=== PATIENT | male | born 1950 | race Caucasian/White ===

== ENCOUNTER 2017-04-28 18:00 | Emergency (ER) | payer OTHER, MEDICARE ==
[2017-04-28 18:12] VITALS: BP 147/68; PULSE 67; TEMP 98.6; BMI 35.4
--- NOTE | 2017-04-28 18:14 | PDOC ---
Rapid Medical Evaluation Chief Complaint: Revisit, Lab Variance Time Seen by Provider: 04/28/17 18:13 Medical Evaluation: Allergies Allergy/AdvReac Type Severity Reaction Status Date / Time No Known Allergies Allergy Verified 04/28/17 18:09 Vital Signs Temp Pulse Resp BP Pulse Ox 98.6 F 67 19 147/68 96 04/28/17 18:10 04/28/17 18:10 04/28/17 18:10 04/28/17 18:10 04/28/17 18:10 04/28/17 18:13 66yo male patient presents to ED c/o elevated potassium. Patient reports having blood drawn by Dr. Alfonso on Monday, just received results today and was told to go to ER. Patient has no other complaints at this time.
[2017-04-28] MEDS ORDERED: SODIUM CHLORIDE 0.9% 1000 ML INFUS.BAG IV ONE (18:22)
[2017-04-28 19:07] LABS: BASO % 0.5 % (0-2.0); EOS % 3.2 % (0-4.5); HEMATOCRIT 38.9 % (35.4-49); HEMOGLOBIN 12.7 GM/dL (11.7-16.9); LYMPH % 29.2 % (8-40); MCH 29.2 pg (25.7-33.7); MCHC 32.8 g/dl (32.0-35.9); MEAN PLT VOLUME 10.7 fl (7.5-11.1); MONO % 14.2 % (3.8-10.2); NEUT % 52.9 % (42.8-82.8); PLATELET COUNT 227 K/MM3 (134-434); RBC 4.37 M/mm3 (4.00-5.60); RDW 13.4 % (11.9-15.9); WHITE BLOOD COUNT 6.1 K/mm3 (4.0-10.0)
--- NOTE | 2017-04-28 19:13 | PDOC ---
History of Present Illness - General History Source: Patient, Old Records Exam Limitations: No Limitations - History of Present Illness Initial Comments: 04/28/17 19:13 The patient is a 65-year-old male, with a significant past medical history of diabetes, gastritis, kidney stones, chronic kidney disease, and hypertension, who sent to the ED by Dr. Alfonso for abnormal labs. The patient's blood work revealed worsening kidney function. On exam, the patient states that he feels increasingly more fatigued when ambulating. He has also noted lower extremity swelling. PCP: Dr. Alfonso <Hawa Donis - Last Filed: 04/28/17 19:13> <Henry Cuadra - Last Filed: 04/28/17 20:40> - General Chief Complaint: Revisit, Lab Variance Stated Complaint: PCP SENT Time Seen by Provider: 04/28/17 18:13 Past History <Hawa Donis - Last Filed: 04/28/17 19:13> - Past Medical History Anemia: Yes Asthma: No Cancer: No Cardiac Disorders: Yes CVA: No COPD: No Dementia: No Diabetes: Yes GI Disorders: Yes (gastritis) Disorders: No HTN: Yes Hypercholesterolemia: No Kidney Stones: Yes Liver Disease: No Seizures: No Thyroid Disease: No - Surgical History Abdominal Surgery: No Appendectomy: No Cardiac Surgery: No Cholecystectomy: Yes Lung Surgery: No Neurologic Surgery: No Orthopedic Surgery: No - Suicide/Smoking/Psychosocial Hx Smoking Status: No Smoking History: Never smoked Have you smoked in the past 12 months: No Number of Cigarettes Smoked Daily: 0 Hx Alcohol Use: No Drug/Substance Use Hx: No Substance Use Type: None Hx Substance Use Treatment: No <Henry Cuadra - Last Filed: 04/28/17 20:40> - Past Medical History Allergies/Adverse Reactions: Allergies Allergy/AdvReac Type Severity Reaction Status Date / Time No Known Allergies Allergy Verified 04/28/17 18:09 Home Medications: Ambulatory Orders Aspirin 81 mg PO DAILY 08/25/13 Carvedilol [Coreg] 25 mg PO BID 08/25/13 Furosemide [Lasix -] 40 mg PO DAILY 08/25/13 Hydralazine HCl 25 mg PO DAILY 08/25/13 Insulin Glargine,Hum.rec.anlog [Lantus Solostar PEN -] 60 units SQ HS 08/25/13 Insulin Lispro [Humalog] 10 unit SQ HS 08/25/13 Cholecalciferol (Vitamin D3) [Vitamin D3 -] 5,000 unit PO DAILY 04/28/17 Review of Systems - Review of Systems Able to Perform ROS?: Yes Comments:: 04/28/17 19:18 A complete review of 10 out of 10 review of systems is taken and is negative apart from what is previously mentioned below and in the HPI. <Hawa Donis - Last Filed: 04/28/17 19:13> *Physical Exam - Vital Signs Last Vital Signs Temp Pulse Resp BP Pulse Ox 98.6 F 67 19 147/68 96 04/28/17 18:10 04/28/17 18:10 04/28/17 18:10 04/28/17 18:10 04/28/17 18:10 - Physical Exam Comments: 04/28/17 19:19 Vitals: Triage Vital signs reviewed General Appearance: no acute distress, well nourished well developed, Neck: Supple;No Nuchal rigidity Chest Wall: Nontender Cardiac: Regular rate and rhythm, no murmurs, no rubs, no gallops, Lungs: Clear to auscultation bilateral, good air movement bilaterally, Abdomen: Soft, nondistended, normal bowel sounds, nontender to palpation Rectal: Exam deferred Extremities: (+)3+ pitting edema in the lower extremities bilaterally. Full range of motion to all extremities, no cyanosis, clubbing. Skin: Warm and dry, no rashes or lesions, no petechiae Neuro: AOX3; Cranial Nerves 2-12 grossly intact, Strength intact to all extremities, Sensation intact to all extremities Psych: normal mood, normal affect <Hawa Donis - Last Filed: 04/28/17 19:13> - Vital Signs Last Vital Signs Temp Pulse Resp BP Pulse Ox 98.6 F 67 19 147/68 96 04/28/17 18:10 04/28/17 18:10 04/28/17 18:10 04/28/17 18:10 04/28/17 18:10 <Henry Cuadra - Last Filed: 04/28/17 20:40> ED Treatment Course - LABORATORY CBC & Chemistry Diagram: 04/28/17 18:40 04/28/17 18:40 <Hawa Donis - Last Filed: 04/28/17 19:13> - LABORATORY CBC & Chemistry Diagram: 04/28/17 18:40 04/28/17 18:40 - RADIOLOGY Radiology Studies Ordered: Category Date Time Status KIDNEY / RENAL US [US] Stat Ultrasound 04/28/17 18:22 Ordered PELVIC / BLADDER US [US] Stat Ultrasound 04/28/17 18:22 Ordered <Henry Cuadra - Last Filed: 04/28/17 20:40> Medical Decision Making - Medical Decision Making 04/28/17 20:39 Patient sent to the emergency department for elevated creatinine. EKG with no evidence of hyperkalemia. Labs sent 2 L normal saline ordered. Ultrasound renal bladder ordered Dr. Alvarez to repeat labs follow-up ultrasound call with results <Henry Cuadra - Last Filed: 04/28/17 20:40> *DC/Admit/Observation/Transfer - Attestations Scribe Attestion: 04/28/17 19:22 Documentation prepared by Hawa Donis, acting as program medical director for Henry Cuadra MD. <Hawa Donis - Last Filed: 04/28/17 19:13> <Henry Cuadra - Last Filed: 04/28/17 20:40> Diagnosis at time of Disposition: Renal insufficiency - Referrals Referrals: Deepika Alfonso MD [Primary Care Provider] - - Patient Instructions - Post Discharge Activity
[2017-04-28 19:44] LABS: CALCIUM 8.5 mg/dL (8.5-10.1); CHLORIDE 101 mmol/L (98-107); POTASSIUM 4.7 mmol/L (3.5-5.1); SODIUM 135 mmol/L (136-145)
[2017-04-28 19:50] LABS: ALBUMIN 3.6 g/dl (3.4-5.0); ALK PHOS 62 U/L (45-117); ANION GAP 7 (8-16); BILIRUBIN,TOTAL 0.4 mg/dL (0.2-1.0); BLOOD UREA NITROGEN 54 mg/dL (7-18); CO2 27 mmol/L (21-32); CREATININE 2.9 mg/dL (0.7-1.3); GLUCOSE,RANDOM 160 mg/dL (74-106); SGOT/AST 11 U/L (15-37); SGPT/ALT 20 U/L (12-78); TOT PROT 7.7 g/dl (6.4-8.2)
[2017-04-28 20:11] LABS: N-TERMINAL BNP 567.32 pg/ml (5-125)
--- NOTE | 2017-04-28 23:04 | PDOC ---
*Physical Exam - Vital Signs Last Vital Signs Temp Pulse Resp BP Pulse Ox 98.6 F 67 19 147/68 96 04/28/17 18:10 04/28/17 18:10 04/28/17 18:10 04/28/17 18:10 04/28/17 18:10 ED Treatment Course - LABORATORY CBC & Chemistry Diagram: 04/28/17 18:40 04/28/17 23:45 - ADDITIONAL ORDERS Additional order review: Laboratory Results 04/28/17 04/28/17 18:40 18:40 Sodium 135 L Potassium 4.7 Chloride 101 Carbon Dioxide 27 Anion Gap 7 L BUN 54 H Creatinine 2.9 H D Creat Clearance w eGFR 21.75 Random Glucose 160 H Calcium 8.5 Total Bilirubin 0.4 AST 11 L D ALT 20 Alkaline Phosphatase 62 Troponin I < 0.02 B-Natriuretic Peptide 567.32 H Total Protein 7.7 Albumin 3.6 04/28/17 18:40 RBC 4.37 MCV 89.0 MCHC 32.8 RDW 13.4 MPV 10.7 Neutrophils % 52.9 Lymphocytes % 29.2 Monocytes % 14.2 H Eosinophils % 3.2 Basophils % 0.5 - RADIOLOGY Radiology Studies Ordered: Category Date Time Status CHEST PA & LAT [RAD] Stat Radiology 04/28/17 22:01 Ordered - Medications Given in the ED: ED Medications Discontinued Medications Generic Name Dose Route Start Last Admin Trade Name Freq PRN Reason Stop Dose Admin Sodium Chloride 2,000 ml 04/28/17 18:22 04/28/17 19:19 Normal Saline - IV 04/28/17 18:23 2,000 ml ONCE ONE Administration Medical Decision Making - Medical Decision Making 04/28/17 23:03 I received signout on patinet. He has elevated BNP, but also elevated BUN/Cr and he was hydrated in the ER to bring down his BUN/Cr. 04/28/17 23:16 Pt received 1L and he is feeling better. CXR looks like the old one from 2013. Slightly increased lung markings, but no infiltrate and no effusions. 04/29/17 01:28 Labs improving. Pt wants to go. He feels better. Ready to go. *DC/Admit/Observation/Transfer Diagnosis at time of Disposition: Renal insufficiency - Discharge Dispostion Disposition: HOME Condition at time of disposition: Stable Admit: No - Referrals Referrals: Nia Monae MD [Staff Physician] - - Patient Instructions Printed Discharge Instructions: Renal Ultrasound - Post Discharge Activity
[2017-04-28 23:45] LABS: URINE APPEARANCE CLEAR; URINE BILIRUBIN NEGATIVE (NEGATIVE); URINE BLOOD NEGATIVE (NEGATIVE); URINE COLOR LTYELLOW; URINE GLUCOSE (UA) 1+ (NEGATIVE); URINE KETONE NEGATIVE (NEGATIVE); URINE LEUK ESTERASE NEGATIVE (NEGATIVE); URINE NITRITE NEGATIVE (NEGATIVE); URINE UROBILINOGEN NEGATIVE mg/dL (0.2-1.0)
[2017-04-28 23:50] LABS: URINE PROTEIN 2+ (NEGATIVE)
[2017-04-29 01:21] LABS: ANION GAP 6 (8-16); BLOOD UREA NITROGEN 51 mg/dL (7-18); CHLORIDE 105 mmol/L (98-107); CO2 26 mmol/L (21-32); CREATININE 2.6 mg/dL (0.7-1.3); GLUCOSE,RANDOM 120 mg/dL (74-106); POTASSIUM 4.1 mmol/L (3.5-5.1); SODIUM 137 mmol/L (136-145)
[2017-04-29 01:23] LABS: N-TERMINAL BNP 448.15 pg/ml (5-125)
--- NOTE | 2017-04-29 16:52 | EKG ---
Test Reason : Blood Pressure : / mmHG Vent. Rate : 064 BPM Atrial Rate : 064 BPM P-R Int : 168 ms QRS Dur : 104 ms QT Int : 420 ms P-R-T Axes : 056 045 061 degrees QTc Int : 433 ms NORMAL SINUS RHYTHM NORMAL ECG WHEN COMPARED WITH ECG OF 25-AUG-2013 11:28, NO SIGNIFICANT CHANGE WAS FOUND Confirmed by GUI FROST MD ([id number]) on 04/29/2017 4:51:48 PM Referred By: Confirmed By:GUI FROST MD
== END 2017-04-29 02:04 | disposition home or self-care (01) ==
LOC: JER 18:00
DX: N28.9 Disorder of kidney and ureter, unspecified (principal); I10 Essential (primary) hypertension; E11.9 Type 2 diabetes mellitus without complications; Z79.84 Long term (current) use of oral hypoglycemic drugs; Z87.442 Personal history of urinary calculi
CPT/HCPCS: 36415; 71046-TC; 76775-TC; 76856-TC; 80048; 80053; 81003; 81015; 83880; 84484; 85025; 87086; 93005; 93010; 99283-25

== ENCOUNTER 2019-05-16 11:22 | Day surgery (SDC) | payer OTHER, MEDICARE ==
[2019-05-16] MEDS ORDERED: DEXTROSE 50%-WATER 25 GM/50 ML DISP.SYRIN ONE (11:46)
[2019-05-16 12:51] VITALS: BMI 36.9
[2019-05-16] MEDS ORDERED: PROPOFOL 20 ML ONE ×2 (13:41)
[2019-05-16 14:46] VITALS: PULSE 57
[2019-05-16 15:15] VITALS: BP 133/62; TEMP 97.9
--- NOTE | 2019-05-20 15:08 | PATH ---
Surgical Pathology Report Patient Name: ROXI MCNAMARA [facility]. Rec. #: [id number] /Age/Gender: 1950 (Age: 68) / M Account: [id number] Location: [facility] Taken: 05/16/2019 Received: 05/16/2019 Reported: 05/20/2019 Physicians: Abran Sims M.D. Specimen(s) Received A: POLYP RIGHT COLON B: POLYP RECTUM Clinical History History of polyps Postoperative diagnosis: Colon polyps Final Diagnosis A. COLON, RIGHT, POLYP, BIOPSY: HYPERPLASTIC POLYP. B.RECTUM, POLYP, BIOPSY: TUBULAR ADENOMA. Electronically Signed Niecy Walker M.D. Gross Description A. Received in formalin, labeled "biopsy polyp right colon" is a vanessa, irregular portion of soft tissue measuring 0.4 cm. in greatest dimension. The specimen is submitted in toto in one cassette. B. Received in formalin, labeled "biopsy polyp rectum" is a vanessa, irregular portion of soft tissue measuring 0.5 cm. in greatest dimension. The specimen is submitted in toto in one cassette. /05/17/2019 saudi/05/17/2019
== END 2019-05-16 15:20 | disposition home or self-care (01) ==
LOC: FASU-ENDO 11:22
PROVIDERS: ATTEND Internal Medicine Gastroenterology
PROC: 0DBK8ZX Excision of Ascending Colon, Via Natural or Artificial Opening Endoscopic, Diagnostic (ICD-10-PCS; 2019-05-16)
PROC: 0DBP8ZX Excision of Rectum, Via Natural or Artificial Opening Endoscopic, Diagnostic (ICD-10-PCS; principal; 2019-05-16 13:59)
DX: Z86.010 Personal history of colon polyps (principal); D12.2 Benign neoplasm of ascending colon; D12.8 Benign neoplasm of rectum
CPT/HCPCS: 82962; 88305-TC

== ENCOUNTER 2020-01-29 04:30 | Day surgery (SDC) | payer OTHER, MEDICARE ==
[2020-01-28 17:15] VITALS: BMI 37.6
--- OUTSIDE RECORDS SUMMARY | 2020-01-29 04:35 | XMS ---
:1950 Author Organization [facility] Care Team Providers Name Role Phone Tristan Jade MD Unavailable Unavailable Reda, F MD Unavailable Unavailable Reda, F MD Unavailable Unavailable Reda, F MD Unavailable Unavailable Reda, F MD Unavailable Unavailable Reda, F MD Unavailable Unavailable Reda, F MD Unavailable Unavailable Reda, F MD Unavailable Unavailable Reda, F MD Unavailable Unavailable Reda, F MD Unavailable Unavailable Reda, F MD Unavailable Unavailable Re-disclosure Warning The records that you are about to access may contain information from federally- assisted alcohol or drug abuse programs. If such information is present, then the following federally mandated warning applies: This information has been disclosed to you from records protected by federal confidentiality rules (42 CFR part 2). The federal rules prohibit you from making any further disclosure of this information unless further disclosure is expressly permitted by the written consent of the person to whom it pertains or as otherwise permitted by 42 CFR part 2. A general authorization for the release of medical or other information is NOT sufficient for this purpose. The Federal rules restrict any use of the information to criminally investigate or prosecute any alcohol or drug abuse patient.The records that you are about to access may contain highly sensitive health information, the redisclosure of which is protected by Article 27-F of the [place] State Public Health law. If you continue you may haveaccess to information: Regarding HIV / AIDS; Provided by facilities licensed or operated by the [facility] Office of Mental Health; or Provided by the [facility] Office for People With Developmental Disabilities. If such information is present, then the following [facility] mandated warning applies: This information has been disclosed to you from confidential records which are protected by state law. State law prohibits you from making any further disclosure of this information without the specific written consent of the person to whom it pertains, or as otherwise permitted by law. Any unauthorized further disclosure in violation of state law may result in a fine or prison sentence or both. A general authorization for the release of medical or other information is NOT sufficient authorization for further disclosure. Encounters Encounter Providers Location Date Indications Data Source(s ) Attender: Tristan 01/17/2020 (MEDGE N) Leonidas Jade MD 12:00:00 AM [place] [facility] Office Attender: Tristan Jade MD 01/17/2020 12:00:00 AM EDT (MEDGEN) [facility] Office Attender: Tristan Jade MD 01/17/2020 12:00:00 AM EDT (MEDGEN) [facility] Office Attender: Tristan Jade MD 01/17/2020 12:00:00 AM EDT (MEDGEN) [facility] Office Attender: Tristan Jade MD 11/28/2019 12:00:00 AM EDT (MEDGEN) [facility] Office Attender: Tristan Jade MD 11/28/2019 12:00:00 AM EDT (MEDGEN) [facility] Office Attender: Tristan Jade MD 11/28/2019 12:00:00 AM EDT (MEDGEN) [facility] Office Attender: Tristan Jade MD 11/28/2019 12:00:00 AM EDT (MEDGEN) [facility] Office Attender: Tristan Jade MD 11/28/2019 12:00:00 AM EDT (MEDGEN) [facility] Office Attender: Tristan Jade MD 11/28/2019 12:00:00 AM EDT (MEDGEN) [facility] Office Medications Medication Brand Start Product Dose Route Administrative Pharmacy [facility] Indications Reaction Description Data Name Date Form Instructions Instructions Source(s) Amlodipine AMLODI 01/16/ TABLET 30 complet AMLOD IPINE (MEDGEN) 2.5 MG Oral PINE 2020 ed BESYLATE [place] Tablet BESYLA 12:00: [place] e AMLODIPINE TE:308 00 AM r BESYLATE:30 136 EDT [facility] 8136 PLL[facility] Calcitriol CALCIT 10/30/ CAPSULE 90 complet CALC ITRIOL (MEDGEN) 0.0005 MG RIOL:3 2018 ed [facility] Oral [id number] 12:00: [place] Capsule 00 AM r CALCITRIOL: EDT [facility] [id number] [facility] Calcitriol CALCIT 10/30/ CAPSULE 90 complet CALC ITRIOL (MEDGEN) 0.0005 MG RIOL:3 2018 ed [facility] Oral [id number] 12:00: [place] Caps[place] 00 AM r CALCITRIOL: EDT [facility] 138542 [facility] Insurance Providers Payer name Policy type Policy ID Covered Covered green party's Policy P en / Coverage green party ID relationship to [employer] Inf ormation type wang MEDICARE [id number] SP [id number] [facility] [id number] 1 [id number] [facility] PART B [id number] (EMDEON) [facility] AETNA INC SP AETNA IN C CARE OPTIONS MEDICARE AETNA INC SP AETNA INC MEDICARE [id number] SP [id number] [facility] [id number] SP [id number] CARE OPTIONS MEDICARE [id number] SP [id number] A Problems, Conditions, and Diagnoses Code Display Name Description Problem Type Effective Dates Data Source(s) N18.9 Chronic kidney CHRONIC KIDNEY Problem 11/28/2019 (MEDGE N) [facility] disease, DISEASE, 12:00:00 AM EDT [facility] er unspecified [facility] N18.9 Chronic kidney CHRONIC KIDNEY Problem 11/28/2019 (MEDGE N) [facility] disease, DISEASE, 12:00:00 AM EDT [facility] er unspecified [facility] Surgeries/Procedures Procedure Description Date Indications Data Source(s) OFFICE OUTPATIENT VISIT 01/17/2020 (MED GEN) [facility] 25 MINUTES 12:00:00 AM [facility] COLLECTION VENOUS BLOOD 01/17/2020 (MED GEN) [facility] VENIPUNCTURE 12:00:00 AM [facility] OFFICE OUTPATIENT VISIT 11/28/2019 (MED GEN) [facility] 25 MINUTES 12:00:00 AM [facility] BLO[facility] 11/28/2019 (MED GEN) [facility] VENIP[facility]CTURE 12:00:00 AM [facility] OFF[facility] OUTPATIENT VISIT 11/28/2019 (MED GEN) [facility] 25 MINUTES 12:00:00 AM [facility] COLLECTION VENOUS BLOOD 11/28/2019 (MED GEN) [facility] VENIPUNCTURE 12:00:00 AM [facility] OFF[facility] OUTPATIENT VISIT 11/28/2019 (MED GEN) [facility] 25 MINUTES 12:00:00 AM [facility] OFFICE OUTPATIENT VISIT 05/22/2019 (MED GEN) [place] 15 MINUTES 12:00:00 AM [facility] OFF[facility] OUTPATIENT VISIT 05/22/2019 (MED GEN) [place] 15 MINUTES 12:00:00 AM [facility] OFFICE OUTPATIENT VISIT 05/22/2019 (MED GEN) [place] 15 MINUTES 12:00:00 AM [facility] OFF[facility] OUTPATIENT VISIT 05/02/2019 (MED GEN) [facility] 15 MINUTES 12:00:00 AM [facility] COLLECTION VENOUS BLOOD 05/02/2019 (MED GEN) [facility] VENIPUNCTURE 12:00:00 AM [facility] OFFICE OUTPATIENT VISIT 05/02/2019 (MED GEN) [place] 15 MINUTES 12:00:00 AM [facility] COLLECTION VENOUS BLOOD 05/02/2019 (MED GEN) [facility] VENIPUNCTURE 12:00:00 AM [facility]PATIENT VISIT 05/02/2019 (MED GEN) [facility] 15 MINUTES 12:00:00 AM [facility] OFFICE OUTPATIENT VISIT 03/25/2019 (MED GEN) [facility] 15 MINUTES 12:00:00 AM [facility]LE[facility] VENOUS BLOOD 03/25/2019 (MED GEN) [place] VENIPUNCTURE 12:00:00 AM [facility] OFFICE OUTPATIENT VISIT 03/25/2019 (MED GEN) [facility] 15 MINUTES 12:00:00 AM [facility] COLLECTION VENOUS BLOOD 03/25/2019 (MED GEN) [place] VENIPUNCTURE 12:00:00 AM [facility] OFFICE OUTPATIENT VISIT 03/25/2019 (MED GEN) [facility] 15 MINUTES 12:00:00 AM EST [place] [facility] OFF[facility] OUTPATIENT VISIT 02/13/2019 (MED GEN) [place] 15 MINUTES 12:00:00 AM EDT [place] [facility] COLLECTION VENOUS BLOOD 02/13/2019 (MED GEN) [place] VENIPUNCTURE 12:00:00 AM EDT [place] [facility] OFF[facility] OUTPATIENT VISIT 02/13/2019 (MED GEN) [facility] 15 MINUTES 12:00:00 AM EDT [place] [facility] COLLECTION VENOUS BLOOD 02/13/2019 (MED GEN) [place] VENIPUNCTURE 12:00:00 AM EDT [place] [facility] OFFICE OUTPATIENT VISIT 02/13/2019 (MED GEN) [place] 15 MINUTES 12:00:00 AM EDT [place] [facility] OFFICE OUTPATIENT VISIT 12/21/2018 (MED GEN) [facility] 15 MINUTES 12:00:00 AM EDT [place] [facility] COLLECTION VENOUS BLOOD 12/21/2018 (MED GEN) [place] VENIPUNCTURE 12:00:00 AM EDT [place] [facility] OFF[facility] OUTPATIENT VISIT 12/21/2018 (MED GEN) [place] 15 MINUTES 12:00:00 AM EDT [place] [facility] 12/21/2018 (MED GEN) [place] VENIPUNCTURE 12:00:00 AM EDT [place] [facility] Results ID Date Data Source [id number] 01/24/2020 10:50:00 AM EDT [facility] Name Value Range Interpretation Description Data Sup porting Code Source(s) Document(s ) SARS [facility] coronavirus 2 RNA This lab was ordered by [facility] and reported by [facility]. ID Date Data Source [id number] 01/13/2020 12:00:00 AM EDT [facility] Name Value Range Interpretation Code Description Data Angela rce(s) Supporting Document(s ) SARS-COV-2 [facility]P Diagnostics QL KEN+PROBE This lab was ordered by [facility] and reported by [facility]. ID Date Data Source [id number] 11/28/2019 12:00:00 AM EDT (MEDGEN) Norbert lynn [place] [facility] Name Value Range Interpretation Description Data Source(s ) Supporting Code Document(s ) Structure of 6.6 Normal (applies (MEDGEN) plantar Thousand to non-numeric [place] digital artery /uL results) [place] (body [facility]ph[facility] structure) [facility] RED BLOOD CELL 2.99 Below low normal (MEDGEN) COUNT Million/ [facility] uL [place] [facility] Hemoglobin 8.9 g/dL Below low normal (MEDGEN) [Mass/volume] [place] in Mixed [place] venous blood [facility] by [facility] Hematocrit 26.6 % Below low normal (MEDGEN) [Pure volume [place] fraction] of [place] Blood [facility] Automated [facility] count MCV 89.0 fL Normal (applies (MEDGEN) to non-numeric [facility] results) [place] [facility] MCHC 33.5 Normal (applies (MEDGEN) g/dL to non-numeric [place] results) [place] [facility] MCH 29.8 pg Normal (applies (MEDGEN) to non-numeric [place] results) [place] [facility] RDW 12.3 % Normal (applies (MEDGEN) to non-numeric [facility] results) [place] [facility] PLATELET COUNT 212 Normal (applies (MEDGEN) Thousand to non-numeric [facility] /uL results) [place] [facility] ABSOLUTE 4132 Normal (applies (MEDGEN) NEUTROPHILS cells/uL to non-numeric [facility] results) [place] [facility] MPV 12.1 fL Normal (applies (MEDGEN) to non-numeric [place] results) [place] [facility] ABSOLUTE 1465 Normal (applies (MEDGEN) LYMPHOCYTES cells/uL to non-numeric [facility] results) [place] [facility] ABSOLUTE 785 Normal (applies (MEDGEN) MONOCYTES cells/uL to non-numeric [facility] results) [place] [facility] ABSOLUTE 198 Normal (applies (MEDGEN) EOSINOPHILS cells/uL to non-numeric [facility] results) [place] [facility] ABSOLUTE 20 Normal (applies (MEDGEN) BASOPHILS cells/uL to non-numeric [facility] results) [place] [facility] Neutrophils 62.6 % Normal (applies (MEDGEN) [#] in Body to non-numeric [place] fluid by results) [place] Manual count [facility] Lymphocytes 22.2 % Normal (applies (MEDGEN) [#] in Body to non-numeric [place] fluid by results) [place] Manual count [facility] Monocytes 11.9 % Normal (applies (MEDGEN) [#/volume] in to non-numeric [facility] Cord blood results) [place] [facility] Eosinophils 3.0 % Normal (applies (MEDGEN) [#] in Body to non-numeric [place] fluid by results) [place] Manual count [facility] PLL Basophils [#] 0.3 % Normal (applies (MEDGEN) in Body fluid to non-numeric [place] by Manual results) [place] count [facility]phrology [facility] ID Date Data Source [id number] 11/28/2019 12:00:00 AM EDT (MEDGEN) [place] [facility] Name Value Range Interpretation Description Data Source(s ) Supporting Code Document(s ) Glucose 177 Above high normal (MEDGEN) [Mass/volume] mg/dL [place] in Urine [place] collected for Nephrology unspecified PLL duration UREA NITROGEN 62 mg/dL Above high normal (MEDGEN) (BUN) [place] [facility] Creatinine 4.05 Above high normal (MEDGEN) [Interpretation mg/dL [place] ] in Urine [place] [facility] eGFR 16 Below low normal (MEDGEN) M[place]GR[place] mL/min/1 [place] .73m2 [place] [facility] eGFR NON-AFR. 14 Below low normal (MEDGEN) [place] mL/min/1 [place] .73m2 [place] [facility] BUN/CREATININE 15 Normal (applies (MEDGEN) RATIO (calc) to non-numeric [place] results) [place] [facility] Sodium 137 Normal (applies (MEDGEN) [Moles/volume] mmol/L to non-numeric [place] in Serum, results) [place] Plasma or Blood [facility] Potassium 4.8 Normal (applies (MEDGEN) [Mass/volume] mmol/L to non-numeric [place] in Blood results) [place] [facility] Carbon dioxide 25 Normal (applies (MEDGEN) [VFr/PPres] in mmol/L to non-numeric [facility] Gas delivery results) [place] system [facility] Chloride 104 Normal (applies (MEDGEN) [Moles/volume] mmol/L to non-numeric [place] in Serum, results) [place] Plasma or Blood [facility] Calcium 8.2 Below low normal (MEDGEN) [Moles/volume] mg/dL [place] in Urine [place] collected for [facility] unspecified PLLC duration PROTEIN, TOTAL 6.7 g/dL Normal (applies (MEDGEN) to non-numeric [facility] results) [place] [facility] Microalbumin 3.3 g/dL Below low normal (MEDGEN) [Mass/time] in [facility] Urine collected [place] for unspecified Nephrology duration PLLC Globulin 3.4 g/dL Normal (applies (MEDGEN) [Mass/time] in (calc) to non-numeric [facility] 24 hour Urine results) [place] [facility] ALBUMIN/GLOBULI 1.0 Normal (applies (MEDGEN) N RATIO (calc) to non-numeric [facility] results) [place] [facility] BILIRUBIN, 0.3 Normal (applies (MEDGEN) TOTAL mg/dL to non-numeric [facility] results) [place] [facility] AST 9 U/L Below low normal (MEDGEN) [facility] Alkaline 55 U/L Normal (applies (MEDGEN) phosphatase to non-numeric [facility] [Enzymatic results) [place] activity/volume Nephrology ] in Serum, PLLC Plasma or Blood ALT 6 U/L Below low normal (MEDGEN) [facility] ID Date Data Source [id number] 11/28/2019 12:00:00 AM EDT (MEDGEN) Norbert shane [place] [facility] Name Value Range Interpretation Description Data Source(s ) Supporting Code Document(s ) PHOSPHATE ( 4.3 mg/dL Normal (applies (MEDGEN) PHOSPHORUS) to non-numeric [facility] results) [place] [facility] ID Date Data Source [id number] 11/28/2019 12:00:00 AM EDT (MEDGEN) Norbert shane [place] [facility] Name Value Range Interpretation Description Data Source(s ) Supporting Code Document(s ) Calcium 8.2 Below low normal (MEDGEN) [Moles/volume] mg/dL [facility] in Urine [place] collected for [facility] unspecified PLLC duration PARATHYROID 236 Above high normal (MEDGEN) HORMONE, pg/mL [facility] INTACT [place] [facility] ID Date Data Source [id number] 05/02/2019 12:00:00 AM EST (MEDGEN) [facility] Name Value Range Interpretation Description Data Source(s ) Supporting Code Document(s ) WBC 7.9 Normal (applies (MEDGEN) Thousand to non-numeric [facility] /uL results) [place] [facility] RBC 3.31 Below low normal (MEDGEN) Million/ [place] uL [place] [facility] Hemoglobin 10.2 Below low normal (MEDGEN) [Mass/volume] g/dL [facility] in Mixed venous [place] blood by [facility]phrology Oximetry [facility] Hematocrit 29.6 % Below low normal (MEDGEN) [Pure volume [place] fraction] of [place] Blood by Nephrology Automated count [facility] MCV 89.4 fL Normal (applies (MEDGEN) to non-numeric [place] results) [place] MCHC 34.5 Normal (applies (MEDGEN) g/dL to non-numeric [facility] results) [place] [facility] MCH 30.8 pg Normal (applies (MEDGEN) to non-numeric [facility] results) [place] RDW 13.0 % Normal (applies (MEDGEN) to non-numeric [facility] results) [place] [facility] PLATELET COUNT 181 Normal (applies (MEDGEN) Thousand to non-numeric [facility] /uL results) [place] MPV 13.2 fL Above high normal (MEDGEN) [facility] TOTAL 68.3 % Normal (applies (MEDGEN) NEUTROPHILS,% to non-numeric [facility] results) [place] TOTAL 16.4 % Normal (applies (MEDGEN) LYMPHOCYTES,% to non-numeric [facility] results) [place] MONOCYTES,% 12.1 % Normal (applies (MEDGEN) to non-numeric [facility] results) [place] EOSINOPHILS,% 2.9 % Normal (applies (MEDGEN) to non-numeric [facility] results) [place] BASOPHILS,% 0.3 % Normal (applies (MEDGEN) to non-numeric [facility] results) [place] [facility] NEUTROPHILS,ABS 5396 Normal (applies (MEDGEN) OLUTE cells/uL to non-numeric [facility] results) [place] LYMPHOCYTES,ABS 1296 Normal (applies (MEDGEN) OLUTE cells/uL to non-numeric [facility] results) [place] MONOCYTES,ABSOL 956 Above high normal (MEDGE N) PILOT STATION cells/uL [facility] EOSINOPHILS,ABS 229 Normal (applies (MEDGEN) OLUTE cells/uL to non-numeric [facility] results) [place] [facility] BASOPHILS,ABSOL 24 Normal (applies (MEDGEN) PILOT STATION cells/uL to non-numeric [facility] results) [place] [facility] DIFFERENTIAL Normal (applies (MEDGEN) to non-numeric [facility] results) [place] [facility] ID Date Data Source [id number] 05/02/2019 12:00:00 AM EST (MEDGEN) Nor[facility] Name Value Range Interpretation Description Data Source(s ) Supporting Code Document(s ) PHOSPHATE ( 5.0 mg/dL Above high normal (MEDGEN) PHOSPHORUS) [facility] ID Date Data Source [id number] 05/02/2019 12:00:00 AM EST (MEDGEN) Norbert shane [place] [facility] Name Value Range Interpretation Description Data Source(s ) Supporting Code Document(s ) Glucose 173 Above high normal (MEDGEN) [Mass/volume] mg/dL [facility] in Urine [place] collected for [facility]rology unspecified PLL duration Sodium 136 Normal (applies (MEDGEN) [Moles/volume] mmol/L to non-numeric [place] in Serum, results) [place] Plasma or Blood [facility]rology [facility] Potassium 5.7 Above high normal (MEDGEN) [Mass/volume] mmol/L [facility] in Blood [place] [facility] Chloride 102 Normal (applies (MEDGEN) [Moles/volume] mmol/L to non-numeric [facility] in Serum, results) [place] Plasma or Blood [facility] Carbon dioxide 24 Normal (applies (MEDGEN) [VFr/PPres] in mmol/L to non-numeric [facility] Gas delivery results) [place] system [facility] Urea nitrogen 88 mg/dL Above high normal (MEDGEN) [Moles/volume] [place] in Blood [place] [facility] Creatinine 4.21 Above high normal (MEDGEN) [Interpretation mg/dL [place] ] in Urine [place] [facility] Calcium 8.9 Normal (applies (MEDGEN) [Moles/volume] mg/dL to non-numeric [facility] in Urine results) [place] collected for Nephrology unspecified PLL duration BUN/CREATININE 21 Normal (applies (MEDGEN) RATIO (calc) to non-numeric [facility] results) [place] [facility] PROTEIN, TOTAL 7.0 g/dL Normal (applies (MEDGEN) to non-numeric [facility] results) [place] [facility] Microalbumin 3.8 g/dL Normal (applies (MEDGEN) [Mass/time] in to non-numeric [facility] Urine collected results) [place] for unspecified Nephrology duration PLLC Globulin 3.2 g/dL Normal (applies (MEDGEN) [Mass/time] in (calc) to non-numeric [facility] 24 hour Urine results) [place] [facility] ALBUMIN/GLOBULI 1.2 Normal (applies (MEDGEN) N RATIO (calc) to non-numeric [facility] results) [place] [facility] BILIRUBIN,TOTAL 0.3 Normal (applies (MEDGEN) mg/dL to non-numeric [facility] results) [place] [facility] Alkaline 44 U/L Normal (applies (MEDGEN) phosphatase to non-numeric [facility] [Enzymatic results) [place] activity/volume Nephrology ] in Serum, [facility] Plasma or Blood AST 11 U/L Normal (applies (MEDGEN) to non-numeric [facility] results) [place] [facility] ALT 9 U/L Normal (applies (MEDGEN) to non-numeric [facility] results) [place] [facility] EGFR NON AFR 13 Below low normal (MEDGEN) [place] mL/min/1 [facility] .73m2 [place] [facility] EGFR 15 Below low normal (MEDGEN) [place] mL/min/1 [place] .73m2 [place] [facility] ID Date Data Source [id number] 05/02/2019 12:00:00 AM EST (MEDGEN) Nor[facility] Name Value Range Interpretation Description Data Source(s ) Supporting Code Document(s ) PTH,INTACT 152 Above high normal (MEDGEN) pg/mL [facility] PLL Calcium 8.8 Normal (applies (MEDGEN) [Moles/volume] mg/dL to non-numeric [facility] in Urine results) [place] collected for Nephrology unspecified PLLC duration ID Date Data Source [id number] 05/02/2019 12:00:00 AM EST (MEDGEN) Norbert shane [place] [facility] Name Value Range Interpretation Description Data Source(s ) Supporting Code Document(s ) WBC 7.9 Normal (applies (MEDGEN) Thousand to non-numeric [facility] /uL results) [place] [facility] RBC 3.31 Below low normal (MEDGEN) Million/ [place] uL [place] [facility] Hemoglobin 10.2 Below low normal (MEDGEN) [Mass/volume] g/dL [facility] in Mixed venous [place] blood by Nephrology Oximetry [facility] Hematocrit 29.6 % Below low normal (MEDGEN) [Pure volume [place] fraction] of [place] Blood by Nephrology Automated count [facility] MCV 89.4 fL Normal (applies (MEDGEN) to non-numeric [facility] results) [place] [facility] MCHC 34.5 Normal (applies (MEDGEN) g/dL to non-numeric [facility] results) [place] [facility] MCH 30.8 pg Normal (applies (MEDGEN) to non-numeric [facility] results) [place] [facility] RDW 13.0 % Normal (applies (MEDGEN) to non-numeric [facility] results) [place] [facility] PLATELET COUNT 181 Normal (applies (MEDGEN) Thousand to non-numeric [facility] /uL results) [place] [facility] MPV 13.2 fL Above high normal (MEDGEN) [facility] TOTAL 68.3 % Normal (applies (MEDGEN) NEUTROPHILS,% to non-numeric [facility] results) [place] [facility] TOTAL 16.4 % Normal (applies (MEDGEN) LYMPHOCYTES,% to non-numeric [facility] results) [place] MONOCYTES,% 12.1 % Normal (applies (MEDGEN) to non-numeric [facility] results) [facility] EOSINOPHILS,% 2.9 % Normal (applies (MEDGEN) to non-numeric [facility] results) [facility] BASOPHILS,% 0.3 % Normal (applies (MEDGEN) to non-numeric [facility] results) [place] [facility] NEUTROPHILS,ABS 5396 Normal (applies (MEDGEN) OLUTE cells/uL to non-numeric [facility] results) [place] [facility] LYMPHOCYTES,ABS 1296 Normal (applies (MEDGEN) OLUTE cells/uL to non-numeric [place] results) [place] MONOCYTES,ABSOL 956 Above high normal (MEDGE N) PILOT STATION cells/uL [facility] EOSINOPHILS,ABS 229 Normal (applies (MEDGEN) OLUTE cells/uL to non-numeric [place] results) [place] [facility] BASOPHILS,ABSOL 24 Normal (applies (MEDGEN) PILOT STATION cells/uL to non-numeric [place] results) [place] [facility] DIFFERENTIAL Normal (applies (MEDGEN) to non-numeric [place] results) [place] [facility] ID Date Data Source [id number] 05/02/2019 12:00:00 AM EST (MEDGEN) [facility] Name Value Range Interpretation Description Data Source(s ) Supporting Code Document(s ) PHOSPHATE ( 5.0 mg/dL Above high normal (MEDGEN) PHOSPHORUS) [facility] ID Date Data Source [id number] 05/02/2019 12:00:00 AM EST (MEDGEN) Norbert shane [place] [facility] Name Value Range Interpretation Description Data Source(s ) Supporting Code Document(s ) Glucose 173 Above high normal (MEDGEN) [Mass/volume] mg/dL [place] in Urine [place] collected for Nephrology unspecified [facility] duration Sodium 136 Normal (applies (MEDGEN) [Moles/volume] mmol/L to non-numeric [place] in Serum, results) [place] Plasma or Blood [facility]phrology [facility] Potassium 5.7 Above high normal (MEDGEN) [Mass/volume] mmol/L [place] in Blood [place] [facility] Chloride 102 Normal (applies (MEDGEN) [Moles/volume] mmol/L to non-numeric [place] in Serum, results) [place] Plasma or Blood [facility]phrology [facility] Carbon dioxide 24 Normal (applies (MEDGEN) [VFr/PPres] in mmol/L to non-numeric [place] Gas delivery results) [facility] Urea nitrogen 88 mg/dL Above high normal (MEDGEN) [Moles/volume] [place] in Blood [place] [facility] Creatinine 4.21 Above high normal (MEDGEN) [Interpretation mg/dL [place] ] in Urine [place] [facility] BUN/CREATININE 21 Normal (applies (MEDGEN) RATIO (calc) to non-numeric [place] results) [place] [facility] Calcium 8.9 Normal (applies (MEDGEN) [Moles/volume] mg/dL to non-numeric [place] in Urine results) [place] collected [facility] duration PROTEIN, TOTAL 7.0 g/dL Normal (applies (MEDGEN) to non-numeric [facility] results) [place] [facility] Microalbumin 3.8 g/dL Normal (applies (MEDGEN) [Mass/time] in to non-numeric [facility] Urine collected results) [place] for unspecified Nephrology duration [facility] Globulin 3.2 g/dL Normal (applies (MEDGEN) [Mass/time] in (calc) to non-numeric [facility] 24 hour Urine results) [place] [facility] ALBUMIN/GLOBULI 1.2 Normal (applies (MEDGEN) N RATIO (calc) to non-numeric [facility] results) [place] [facility] BILIRUBIN,TOTAL 0.3 Normal (applies (MEDGEN) mg/dL to non-numeric [facility] results) [place] [facility] Alkaline 44 U/L Normal (applies (MEDGEN) phosphatase to non-numeric [facility] [Enzymatic results) [place] activity/volume Nephrology ] in Serum, [facility] Plasma or Blood AST 11 U/L Normal (applies (MEDGEN) to non-numeric [facility] results) [place] [facility] ALT 9 U/L Normal (applies (MEDGEN) to non-numeric [facility] results) [place] [facility] EGFR NON AFR 13 Below low normal (MEDGEN) [place] mL/min/1 [place] .73m2 [place] [facility] EGFR 15 Below low normal (MEDGEN) [place] mL/min/1 [place] .73m2 [place] [facility] ID Date Data Source [id number] 05/02/2019 12:00:00 AM EST (MEDGEN) [facility] Name Value Range Interpretation Description Data Source(s ) Supporting Code Document(s ) Calcium 8.8 Normal (applies (MEDGEN) [Moles/volume] mg/dL to non-numeric [facility] in Urine results) [place] collected for Nephrology unspecified [facility] duration PTH,INTACT 152 Above high normal (MEDGEN) pg/mL [facility] ID Date Data Source [id number] 05/02/2019 12:00:00 AM EST (MEDGEN) [facility] Name Value Range Interpretation Description Data Source(s ) Supporting Code Document(s ) WBC 7.9 Normal (applies (MEDGEN) Thousand to non-numeric [facility] /uL results) [place] [facility] Hemoglobin 10.2 Below low normal (MEDGEN) [Mass/volume] g/dL [place] in Mixed venous [place] blood by Nephrology Oximetry [facility] RBC 3.31 Below low normal (MEDGEN) Million/ [place] uL [place] [facility] Hematocrit 29.6 % Below low normal (MEDGEN) [Pure volume [place] fraction] of [place] Blood by Nephrology Automated count [facility] MCV 89.4 fL Normal (applies (MEDGEN) to non-numeric [place] results) [place] [facility] MCH 30.8 pg Normal (applies (MEDGEN) to non-numeric [place] results) [place] MCHC 34.5 Normal (applies (MEDGEN) g/dL to non-numeric [place] results) [place] [facility] RDW 13.0 % Normal (applies (MEDGEN) to non-numeric [place] results) [place] PLATELET COUNT 181 Normal (applies (MEDGEN) Thousand to non-numeric [place] /uL results) [place] MPV 13.2 fL Above high normal (MEDGEN) [facility] TOTAL 68.3 % Normal (applies (MEDGEN) NEUTROPHILS,% to non-numeric [place] results) [place] [facility] TOTAL 16.4 % Normal (applies (MEDGEN) LYMPHOCYTES,% to non-numeric [place] results) [place] MONOCYTES,% 12.1 % Normal (applies (MEDGEN) to non-numeric [place] results) [facility] EOSINOPHILS,% 2.9 % Normal (applies (MEDGEN) to non-numeric [place] results) [place] BASOPHILS,% 0.3 % Normal (applies (MEDGEN) to non-numeric [place] results) [place] NEUTROPHILS,ABS 5396 Normal (applies (MEDGEN) OLUTE cells/uL to non-numeric [place] results) [place] [facility] LYMPHOCYTES,ABS 1296 Normal (applies (MEDGEN) OLUTE cells/uL to non-numeric [place] results) [place] MONOCYTES,ABSOL 956 Above high normal (MEDGE N) PILOT STATION cells/uL [facility] EOSINOPHILS,ABS 229 Normal (applies (MEDGEN) OLUTE cells/uL to non-numeric [place] results) [place] [facility] BASOPHILS,ABSOL 24 Normal (applies (MEDGEN) PILOT STATION cells/uL to non-numeric [place] results) [place] [facility] DIFFERENTIAL Normal (applies (MEDGEN) to non-numeric [place] results) [place] [facility] ID Date Data Source [id number] 05/02/2019 12:00:00 AM EST (MEDGEN) [place] [facility] Name Value Range Interpretation Description Data Source(s ) Supporting Code Document(s ) PHOSPHATE ( 5.0 mg/dL Above high normal (MEDGEN) PHOSPHORUS) [facility] ID Date Data Source [id number] 05/02/2019 12:00:00 AM EST (MEDGEN) [facility] Name Value Range Interpretation Description Data Source(s ) Supporting Code Document(s ) Glucose 173 Above high normal (MEDGEN) [Mass/volume] mg/dL [place] in Urine [place] collected for Nephrology unspecified [facility] duration Sodium 136 Normal (applies (MEDGEN) [Moles/volume] mmol/L to non-numeric [place] in Serum, results) [place] Plasma or Blood Nephrology [facility] Potassium 5.7 Above high normal (MEDGEN) [Mass/volume] mmol/L [place] in Blood [place] [facility] Chloride 102 Normal (applies (MEDGEN) [Moles/volume] mmol/L to non-numeric [place] in Serum, results) [place] Plasma or Blood Nephrology [facility] Carbon dioxide 24 Normal (applies (MEDGEN) [VFr/PPres] in mmol/L to non-numeric [place] Gas delivery results) [place] system [facility]phrology [facility] Urea nitrogen 88 mg/dL Above high normal (MEDGEN) [Moles/volume] [place] in Blood [place] [facility] BUN/CREATININE 21 Normal (applies (MEDGEN) RATIO (calc) to non-numeric [place] results) [place] [facility] Creatinine 4.21 Above high normal (MEDGEN) [Interpretation mg/dL [place] ] in Urine [place] [facility] Calcium 8.9 Normal (applies (MEDGEN) [Moles/volume] mg/dL to non-numeric [place] in Urine results) [place] collected for Nephrology unspecified [facility] duration PROTEIN, TOTAL 7.0 g/dL Normal (applies (MEDGEN) to non-numeric [facility] results) [place] [facility] Microalbumin 3.8 g/dL Normal (applies (MEDGEN) [Mass/time] in to non-numeric [facility] Urine collected results) [place] for unspecified Nephrology duration [facility] Globulin 3.2 g/dL Normal (applies (MEDGEN) [Mass/time] in (calc) to non-numeric [facility] 24 hour Urine results) [place] [facility] ALBUMIN/GLOBULI 1.2 Normal (applies (MEDGEN) N RATIO (calc) to non-numeric [facility] results) [place] [facility] BILIRUBIN,TOTAL 0.3 Normal (applies (MEDGEN) mg/dL to non-numeric [facility] results) [place] [facility] Alkaline 44 U/L Normal (applies (MEDGEN) phosphatase to non-numeric [place] [Enzymatic results) [place] activity/volume Nephrology ] in Serum, [facility] Plasma or Blood AST 11 U/L Normal (applies (MEDGEN) to non-numeric [facility] results) [place] [facility] ALT 9 U/L Normal (applies (MEDGEN) to non-numeric [facility] results) [place] [facility] EGFR NON AFR 13 Below low normal (MEDGEN) [place] mL/min/1 [place] .73m2 [place] [facility] EGFR 15 Below low normal (MEDGEN) [place] mL/min/1 [place] .73m2 [place] [facility] ID Date Data Source [id number] 03/25/2019 12:00:00 AM EST (MEDGEN) Norbert shane [place] [facility] Name Value Range Interpretation Description Data Source(s ) Supporting Code Document(s ) Hemoglobin A1c 8.2 % of Above high normal (MEDGEN ) in Blood total [facility] Hgb [place] [facility] ID Date Data Source [id number] 03/25/2019 12:00:00 AM EST (MEDGEN) Norbert shane [place] [facility] Name Value Range Interpretation Description Data Source(s ) Supporting Code Document(s ) WBC 6.2 Normal (applies (MEDGEN) Thousand to non-numeric [place] /uL results) [place] [facility] RBC 3.50 Below low normal (MEDGEN) Million/ [place] uL [place] [facility] Hemoglobin 10.6 Below low normal (MEDGEN) [Mass/volume] g/dL [place] in Mixed venous [place] blood by Nephrology Oximetry [facility] Hematocrit 31.3 % Below low normal (MEDGEN) [Pure volume [place] fraction] of [place] Blood by Nephrology Automated count [facility] MCV 89.4 fL Normal (applies (MEDGEN) to non-numeric [place] results) [place] MCH 30.3 pg Normal (applies (MEDGEN) to non-numeric [place] results) [place] MCHC 33.9 Normal (applies (MEDGEN) g/dL to non-numeric [place] results) [place] RDW 13.6 % Normal (applies (MEDGEN) to non-numeric [place] results) [place] PLATELET COUNT 207 Normal (applies (MEDGEN) Thousand to non-numeric [place] /uL results) [place] MPV 12.4 fL Normal (applies (MEDGEN) to non-numeric [place] results) [place] TOTAL 61.0 % Normal (applies (MEDGEN) NEUTROPHILS,% to non-numeric [place] results) [place] TOTAL 24.8 % Normal (applies (MEDGEN) LYMPHOCYTES,% to non-numeric [place] results) [place] MONOCYTES,% 11.0 % Normal (applies (MEDGEN) to non-numeric [place] results) [place] EOSINOPHILS,% 2.9 % Normal (applies (MEDGEN) to non-numeric [place] results) [place] NEUTROPHILS,ABS 3782 Normal (applies (MEDGEN) OLUTE cells/uL to non-numeric [place] results) [place] BASOPHILS,% 0.3 % Normal (applies (MEDGEN) to non-numeric [place] results) [place] LYMPHOCYTES,ABS 1538 Normal (applies (MEDGEN) [place]UTE cells/uL to non-numeric [place] results) [place] MONOCYTES,ABSOL 682 Normal (applies (MEDGEN) PILOT STATION cells/uL to non-numeric [place] results) [place] EOSINOPHILS,ABS 180 Normal (applies (MEDGEN) OLUTE cells/uL to non-numeric [place] results) [place] DIFFERENTIAL Normal (applies (MEDGEN) to non-numeric [facility] results) [facility] BASOPHILS,ABSOL 19 Normal (applies (MEDGEN) PILOT STATION cells/uL to non-numeric [facility] results) [place] [facility] ID Date Data Source [id number] 03/25/2019 12:00:00 AM EST (MEDGEN) Norbert lynn [place] [facility] Name Value Range Interpretation Description Data Source(s ) Supporting Code Document(s ) PHOSPHATE ( 4.3 mg/dL Normal (applies (MEDGEN) PHOSPHORUS) to non-numeric [place] results) [place] [facility] ID Date Data Source [id number] 03/25/2019 12:00:00 AM EST (MEDGEN) [facility]bert shane [place] [facility] Name Value Range Interpretation Description Data Source(s ) Supporting Code Document(s ) Glucose 108 Normal (applies (MEDGEN) [Mass/volume] mg/dL to non-numeric [place] in Urine results) [place] collected for Nephrology unspecified [facility] duration Sodium 138 Normal (applies (MEDGEN) [Moles/volume] mmol/L to non-numeric [place] in Serum, results) [place] Plasma or Blood Nephrology [facility] Chloride 104 Normal (applies (MEDGEN) [Moles/volume] mmol/L to non-numeric [place] in Serum, results) [place] Plasma or Blood Nephrology [facility] Potassium 4.9 Normal (applies (MEDGEN) [Mass/volume] mmol/L to non-numeric [place] in Blood results) [place] [facility] Carbon dioxide 25 Normal (applies (MEDGEN) [VFr/PPres] in mmol/L to non-numeric [place] Gas delivery results) [facility] Urea nitrogen 73 mg/dL Above high normal (MEDGEN) [Moles/volume] [place] in Blood [place] [facility] Creatinine 3.77 Above high normal (MEDGEN) [Interpretation mg/dL [place] ] in Urine [place] [facility] BUN/CREATININE 19 Normal (applies (MEDGEN) RATIO (calc) to non-numeric [place] results) [place] [facility] Calcium 9.1 Normal (applies (MEDGEN) [Moles/volume] mg/dL to non-numeric [place] in Urine results) [place] collected for Nephrology unspecified [facility] duration PROTEIN, TOTAL 7.3 g/dL Normal (applies (MEDGEN) to non-numeric [place] results) [place] [facility] Microalbumin 3.9 g/dL Normal (applies (MEDGEN) [Mass/time] in to non-numeric [facility] Urine collected results) [place] for unspecified Nephrology duration [facility] Globulin 3.4 g/dL Normal (applies (MEDGEN) [Mass/time] in (calc) to non-numeric [facility] 24 hour Urine results) [place] [facility] ALBUMIN/GLOBULI 1.1 Normal (applies (MEDGEN) N RATIO (calc) to non-numeric [facility] results) [place] [facility] BILIRUBIN,TOTAL 0.4 Normal (applies (MEDGEN) mg/dL to non-numeric [facility] results) [place] [facility] Alkaline 45 U/L Normal (applies (MEDGEN) phosphatase to non-numeric [facility] [Enzymatic results) [place] activity/volume Nephrology ] in Serum, [facility] Plasma or Blood AST 10 U/L Normal (applies (MEDGEN) to non-numeric [facility] results) [place] [facility] ALT 9 U/L Normal (applies (MEDGEN) to non-numeric [facility] results) [place] [facility] EGFR NON AFR 15 Below low normal (MEDGEN) [place] mL/min/1 [place] .73m2 [place] [facility] EGFR 18 Below low normal (MEDGEN) [place] mL/min/1 [place] .73m2 [place] [facility] ID Date Data Source [id number] 03/25/2019 12:00:00 AM EST (MEDGEN) [facility] Name Value Range Interpretation Description Data Source(s ) Supporting Code Document(s ) Calcium 8.7 Normal (applies (MEDGEN) [Moles/volume] mg/dL to non-numeric [facility] in Urine results) [place] collected for Nephrology unspecified [facility] duration PTH,INTACT 144 Above high normal (MEDGEN) pg/mL [facility] ID Date Data Source [id number] 03/25/2019 12:00:00 AM EST (MEDGEN) [facility] Name Value Range Interpretation Description Data Source(s ) Supporting Code Document(s ) Hemoglobin A1c 8.2 % of Above high normal (MEDGEN ) in Blood total [facility] Hgb [place] [facility] ID Date Data Source [id number] 03/25/2019 12:00:00 AM EST (MEDGEN) Norbert lynn [place] [facility] Name Value Range Interpretation Description Data Source(s ) Supporting Code Document(s ) WBC 6.2 Normal (applies (MEDGEN) Thousand to non-numeric [place] /uL results) [place] [facility] RBC 3.50 Below low normal (MEDGEN) Million/ [place] uL [place] [facility] Hemoglobin 10.6 Below low normal (MEDGEN) [Mass/volume] g/dL [place] in Mixed venous [place] blood by Nephrology Oximetry [facility] Hematocrit 31.3 % Below low normal (MEDGEN) [Pure volume [place] fraction] of [place] Blood by Nephrology Automated count [facility] MCV 89.4 fL Normal (applies (MEDGEN) to non-numeric [place] results) [place] [facility] MCH 30.3 pg Normal (applies (MEDGEN) to non-numeric [place] results) [place] MCHC 33.9 Normal (applies (MEDGEN) g/dL to non-numeric [place] results) [place] [facility] RDW 13.6 % Normal (applies (MEDGEN) to non-numeric [place] results) [place] PLATELET COUNT 207 Normal (applies (MEDGEN) Thousand to non-numeric [place] /uL results) [place] MPV 12.4 fL Normal (applies (MEDGEN) to non-numeric [place] results) [place] TOTAL 61.0 % Normal (applies (MEDGEN) NEUTROPHILS,% to non-numeric [place] results) [place] TOTAL 24.8 % Normal (applies (MEDGEN) LYMPHOCYTES,% to non-numeric [place] results) [place] MONOCYTES,% 11.0 % Normal (applies (MEDGEN) to non-numeric [place] results) [place] EOSINOPHILS,% 2.9 % Normal (applies (MEDGEN) to non-numeric [place] results) [place] BASOPHILS,% 0.3 % Normal (applies (MEDGEN) to non-numeric [place] results) [place] NEUTROPHILS,ABS 3782 Normal (applies (MEDGEN) [place]UTE cells/uL to non-numeric [place] results) [place] LYMPHOCYTES,ABS 1538 Normal (applies (MEDGEN) [place] cells/uL to non-numeric [place] results) [place] [facility] MONOCYTES,ABSOL 682 Normal (applies (MEDGEN) PILOT STATION cells/uL to non-numeric [place] results) [place] [facility] BASOPHILS,ABSOL 19 Normal (applies (MEDGEN) PILOT STATION cells/uL to non-numeric [place] results) [place] [facility] EOSINOPHILS,ABS 180 Normal (applies (MEDGEN) OLUTE cells/uL to non-numeric [place] results) [place] [facility] DIFFERENTIAL Normal (applies (MEDGEN) to non-numeric [place] results) [place] [facility] ID Date Data Source [id number] 03/25/2019 12:00:00 AM EST (MEDGEN) [facility] lynn [place] [facility] Name Value Range Interpretation Description Data Source(s ) Supporting Code Document(s ) PHOSPHATE ( 4.3 mg/dL Normal (applies (MEDGEN) PHOSPHORUS) to non-numeric [place] results) [place] [facility] ID Date Data Source [id number] 03/25/2019 12:00:00 AM EST (MEDGEN) [facility] lynn [place] [facility] Name Value Range Interpretation Description Data Source(s ) Supporting Code Document(s ) Glucose 108 Normal (applies (MEDGEN) [Mass/volume] mg/dL to non-numeric [place] in Urine results) [place] collected for Nephrology unspecified [facility] duration Sodium 138 Normal (applies (MEDGEN) [Moles/volume] mmol/L to non-numeric [place] in Serum, results) [place] Plasma or Blood Nephrology [facility] Potassium 4.9 Normal (applies (MEDGEN) [Mass/volume] mmol/L to non-numeric [place] in Blood results) [place] [facility] Carbon dioxide 25 Normal (applies (MEDGEN) [VFr/PPres] in mmol/L to non-numeric [facility] Gas delivery results) [place] system [facility]ph[facility] Chloride 104 Normal (applies (MEDGEN) [Moles/volume] mmol/L to non-numeric [place] in Serum, results) [place] Plasma or Blood Nephrology [facility] Urea nitrogen 73 mg/dL Above high normal (MEDGEN) [Moles/volume] [place] in Blood [place] [facility] Creatinine 3.77 Above high normal (MEDGEN) [Interpretation mg/dL [place] ] in Urine [place] [facility] BUN/CREATININE 19 Normal (applies (MEDGEN) RATIO (calc) to non-numeric [facility] results) [place] [facility] Calcium 9.1 Normal (applies (MEDGEN) [Moles/volume] mg/dL to non-numeric [place] in Urine results) [place] collected for Nephrology unspecified [facility] duration PROTEIN, TOTAL 7.3 g/dL Normal (applies (MEDGEN) to non-numeric [place] results) [place] [facility] Microalbumin 3.9 g/dL Normal (applies (MEDGEN) [Mass/time] in to non-numeric [facility] Urine collected results) [place] for unspecified Nephrology duration PLL Globulin 3.4 g/dL Normal (applies (MEDGEN) [Mass/time] in (calc) to non-numeric [facility] 24 hour Urine results) [place] [facility] BILIRUBIN,TOTAL 0.4 Normal (applies (MEDGEN) mg/dL to non-numeric [facility] results) [place] [facility] ALBUMIN/GLOBULI 1.1 Normal (applies (MEDGEN) N RATIO (calc) to non-numeric [facility] results) [place] [facility] Alkaline 45 U/L Normal (applies (MEDGEN) phosphatase to non-numeric [facility] [Enzymatic results) [place] activity/volume Nephrology ] in Serum, [facility] Plasma or Blood AST 10 U/L Normal (applies (MEDGEN) to non-numeric [place] results) [place] [facility] ALT 9 U/L Normal (applies (MEDGEN) to non-numeric [facility] results) [place] [facility] EGFR 18 Below low normal (MEDGEN) [place] mL/min/1 [place] .73m2 [place] [facility] EGFR NON AFR 15 Below low normal (MEDGEN) [place] mL/min/1 [place] .73m2 [place] [facility] ID Date Data Source [id number] 03/25/2019 12:00:00 AM EST (MEDGEN) Norbert lynn [place] [facility] Name Value Range Interpretation Description Data Source(s ) Supporting Code Document(s ) Calcium 8.7 Normal (applies (MEDGEN) [Moles/volume] mg/dL to non-numeric [facility] in Urine results) [place] collected for Nephrology unspecified [facility] duration PTH,INTACT 144 Above high normal (MEDGEN) pg/mL [facility] ID Date Data Source [id number] 03/25/2019 12:00:00 AM EST (MEDGEN) [facility] lynn [place] [facility] Name Value Range Interpretation Description Data Source(s ) Supporting Code Document(s ) Hemoglobin A1c 8.2 % of Above high normal (MEDGEN ) in Blood total [facility] Hgb [place] [facility] ID Date Data Source [id number] 03/25/2019 12:00:00 AM EST (MEDGEN) [facility] lynn [place] [facility] Name Value Range Interpretation Description Data Source(s ) Supporting Code Document(s ) WBC 6.2 Normal (applies (MEDGEN) Thousand to non-numeric [facility] /uL results) [place] [facility] RBC 3.50 Below low normal (MEDGEN) Million/ [place] uL [place] [facility] Hemoglobin 10.6 Below low normal (MEDGEN) [Mass/volume] g/dL [place] in Mixed venous [place] blood by Nephrology Oximetry [facility] Hematocrit 31.3 % Below low normal (MEDGEN) [Pure volume [place] fraction] of [place] Blood by Nephrology Automated count [facility] MCV 89.4 fL Normal (applies (MEDGEN) to non-numeric [place] results) [place] MCH 30.3 pg Normal (applies (MEDGEN) to non-numeric [facility] results) [place] MCHC 33.9 Normal (applies (MEDGEN) g/dL to non-numeric [facility] results) [place] RDW 13.6 % Normal (applies (MEDGEN) to non-numeric [facility] results) [place] PLATELET COUNT 207 Normal (applies (MEDGEN) Thousand to non-numeric [facility] /uL results) [place] MPV 12.4 fL Normal (applies (MEDGEN) to non-numeric [place] results) [place] TOTAL 61.0 % Normal (applies (MEDGEN) NEUTROPHILS,% to non-numeric [place] results) [place] TOTAL 24.8 % Normal (applies (MEDGEN) LYMPHOCYTES,% to non-numeric [place] results) [place] EOSINOPHILS,% 2.9 % Normal (applies (MEDGEN) to non-numeric [place] results) [place] MONOCYTES,% 11.0 % Normal (applies (MEDGEN) to non-numeric [place] results) [facility] BASOPHILS,% 0.3 % Normal (applies (MEDGEN) to non-numeric [place] results) [place] [facility] [facility] NEUTROPHILS,ABS 3782 Normal (applies (MEDGEN) OLUTE cells/uL to non-numeric [place] results) [place] [facility] LYMPHOCYTES,ABS 1538 Normal (applies (MEDGEN) OLUTE cells/uL to non-numeric [place] results) [place] [facility] EOSINOPHILS,ABS 180 Normal (applies (MEDGEN) OLUTE cells/uL to non-numeric [place] results) [place] MONOCYTES,ABSOL 682 Normal (applies (MEDGEN) PILOT STATION cells/uL to non-numeric [place] results) [place] [facility] BASOPHILS,ABSOL 19 Normal (applies (MEDGEN) PILOT STATION cells/uL to non-numeric [place] results) [place] DIFFERENTIAL Normal (applies (MEDGEN) to non-numeric [place] results) [facility] ID Date Data Source [id number] 03/25/2019 12:00:00 AM EST (MEDGEN) Angelat shane [place] [facility] [facility] Name Value Range Interpretation Description Data Source(s ) Supporting Code Document(s ) PHOSPHATE ( 4.3 mg/dL Normal (applies (MEDGEN) PHOSPHORUS) to non-numeric [place] results) [place] [facility] ID Date Data Source [id number] 03/25/2019 12:00:00 AM EST (MEDGEN) Norbert shane [facility] Name Value Range Interpretation Description Data Source(s ) Supporting Code Document(s ) Glucose 108 Normal (applies (MEDGEN) [Mass/volume] mg/dL to non-numeric [place] in Urine results) [place] collected for Nephrology unspecified PLL duration Potassium 4.9 Normal (applies (MEDGEN) [Mass/volume] mmol/L to non-numeric [place] in Blood results) [place] [facility] [facility] Sodium 138 Normal (applies (MEDGEN) [Moles/volume] mmol/L to non-numeric [place] in Serum, results) [place] Plasma or Blood [facility]ph[facility] Chloride 104 Normal (applies (MEDGEN) [Moles/volume] mmol/L to non-numeric [place] in Serum, results) [place] Plasma or Blood [facility] Carbon dioxide 25 Normal (applies (MEDGEN) [VFr/PPres] in mmol/L to non-numeric [facility] Gas delivery results) [place] [facility] Urea nitrogen 73 mg/dL Above high normal (MEDGEN) [Moles/volume] [place] in Blood [facility] BUN/CREATININE 19 Normal (applies (MEDGEN) RATIO (calc) to non-numeric [place] results) [facility] Creatinine 3.77 Above high normal (MEDGEN) [Interpretation mg/dL [place] ] in Urine [facility] Calcium 9.1 Normal (applies (MEDGEN) [Moles/volume] mg/dL to non-numeric [place] in Urine results) [place] collected for Nephrology unspecified PLL duration PROTEIN, TOTAL 7.3 g/dL Normal (applies (MEDGEN) to non-numeric [place] results) [facility] Microalbumin 3.9 g/dL Normal (applies (MEDGEN) [Mass/time] in to non-numeric [facility] Urine collected results) [place] for unspecified Nephrology duration PLL Globulin 3.4 g/dL Normal (applies (MEDGEN) [Mass/time] in (calc) to non-numeric [place] 24 hour Urine results) [facility] ALBUMIN/GLOBULI 1.1 Normal (applies (MEDGEN) N RATIO (calc) to non-numeric [place] results) [facility] BILIRUBIN,TOTAL 0.4 Normal (applies (MEDGEN) mg/dL to non-numeric [place] results) [facility] Alkaline 45 U/L Normal (applies (MEDGEN) phosphatase to non-numeric [place] [Enzymatic results) [place] activity/volume Nephrology ] in Serum, [facility] Plasma or Blood AST 10 U/L Normal (applies (MEDGEN) to non-numeric [place] results) [facility] ALT 9 U/L Normal (applies (MEDGEN) to non-numeric [place] results) [facility] EGFR NON AFR 15 Below low normal (MEDGEN) [place] mL/min/1 [place] .73m2 [facility] EGFR 18 Below low normal (MEDGEN) [place] mL/min/1 [place] .73m2 [place] [facility] [facility] ID Date Data Source [id number] 02/13/2019 12:00:00 AM EDT (MEDGEN) Norbert shane [facility] [facility] Name Value Range Interpretation Description Data Source(s ) Supporting Code Document(s ) WBC 7.0 Normal (applies (MEDGEN) Thousand to non-numeric [place] /uL results) [place] RBC 3.44 Below low normal (MEDGEN) Million/ [place] uL [facility] Hemoglobin 10.3 Below low normal (MEDGEN) [Mass/volume] g/dL [place] in Mixed venous [place] blood by Nephrology Oximetry [facility] Hematocrit 30.6 % Below low normal (MEDGEN) [Pure volume [place] fraction] of [place] Blood by Nephrology Automated count [facility] MCV 89.0 fL Normal (applies (MEDGEN) to non-numeric [place] results) [place] MCH 29.9 pg Normal (applies (MEDGEN) to non-numeric [place] results) [place] MCHC 33.7 Normal (applies (MEDGEN) g/dL to non-numeric [place] results) [place] RDW 13.6 % Normal (applies (MEDGEN) to non-numeric [place] results) [place] PLATELET COUNT 198 Normal (applies (MEDGEN) Thousand to non-numeric [place] /uL results) [place] MPV 12.3 fL Normal (applies (MEDGEN) to non-numeric [place] results) [place] TOTAL 59.0 % Normal (applies (MEDGEN) NEUTROPHILS,% to non-numeric [place] results) [place] TOTAL 26.6 % Normal (applies (MEDGEN) LYMPHOCYTES,% to non-numeric [place] results) [place] MONOCYTES,% 10.8 % Normal (applies (MEDGEN) to non-numeric [place] results) [place] BASOPHILS,% 0.3 % Normal (applies (MEDGEN) to non-numeric [place] results) [place] EOSINOPHILS,% 3.3 % Normal (applies (MEDGEN) to non-numeric [place] results) [place] NEUTROPHILS,ABS 4130 Normal (applies (MEDGEN) OLUTE cells/uL to non-numeric [place] results) [place] LYMPHOCYTES,ABS 1862 Normal (applies (MEDGEN) [place]UTE cells/uL to non-numeric [place] results) [facility] MONOCYTES,ABSOL 756 Normal (applies (MEDGEN) PILOT STATION cells/uL to non-numeric [place] results) [facility] EOSINOPHILS,ABS 231 Normal (applies (MEDGEN) OLUTE cells/uL to non-numeric [place] results) [facility] [facility] BASOPHILS,ABSOL 21 Normal (applies (MEDGEN) PILOT STATION cells/uL to non-numeric [place] results) [place] [facility] [facility] DIFFERENTIAL Normal (applies (MEDGEN) to non-numeric [place] results) [place] [facility] [facility] ID Date Data Source [id number] 02/13/2019 12:00:00 AM EDT (MEDGEN) Norbert shane [place] [facility] [facility] Name Value Range Interpretation Description Data Source(s ) Supporting Code Document(s ) PHOSPHATE ( 4.1 mg/dL Normal (applies (MEDGEN) PHOSPHORUS) to non-numeric [place] results) [place] [facility] [facility] ID Date Data Source [id number] 02/13/2019 12:00:00 AM EDT (MEDGEN) Norbert shane [place] [facility] [facility] Name Value Range Interpretation Description Data Source(s ) Supporting Code Document(s ) Glucose 140 Above high normal (MEDGEN) [Mass/volume] mg/dL [place] in Urine [place] collected for Nephrology unspecified PLL duration Sodium 136 Normal (applies (MEDGEN) [Moles/volume] mmol/L to non-numeric [place] in Serum, results) [place] Plasma or Blood [facility]ph[facility] Potassium 5.3 Normal (applies (MEDGEN) [Mass/volume] mmol/L to non-numeric [place] in Blood results) [facility] [facility] Chloride 102 Normal (applies (MEDGEN) [Moles/volume] mmol/L to non-numeric [place] in Serum, results) [place] Plasma or Blood [facility]ph[facility] Carbon dioxide 24 Normal (applies (MEDGEN) [VFr/PPres] in mmol/L to non-numeric [place] Gas delivery results) [place] [facility] Urea nitrogen 63 mg/dL Above high normal (MEDGEN) [Moles/volume] [place] in Blood [facility] Creatinine 3.32 Above high normal (MEDGEN) [Interpretation mg/dL [place] ] in Urine [facility] BUN/CREATININE 19 Normal (applies (MEDGEN) RATIO (calc) to non-numeric [facility] results) [place] [facility] [facility] Calcium 8.5 Below low normal (MEDGEN) [Moles/volume] mg/dL [place] in Urine [place] collected for Nephrology unspecified PLL[facility] duration PROTEIN, TOTAL 6.8 g/dL Normal (applies (MEDGEN) to non-numeric [facility] results) [place] [facility] [facility] Microalbumin 3.6 g/dL Normal (applies (MEDGEN) [Mass/time] in to non-numeric [facility] Urine collected results) [place] for unspecified Nephrology duration PLL Globulin 3.2 g/dL Normal (applies (MEDGEN) [Mass/time] in (calc) to non-numeric [facility] 24 hour Urine results) [facility] [facility] ALBUMIN/GLOBULI 1.1 Normal (applies (MEDGEN) N RATIO (calc) to non-numeric [facility] results) [place] [facility] [facility] BILIRUBIN,TOTAL 0.4 Normal (applies (MEDGEN) mg/dL to non-numeric [place] results) [facility] [facility] Alkaline 48 U/L Normal (applies (MEDGEN) phosphatase to non-numeric [place] [Enzymatic results) [place] activity/volume Nephrology ] in Serum, [facility] Plasma or Blood ALT 10 U/L Normal (applies (MEDGEN) to non-numeric [place] results) [facility] [facility] AST 15 U/L Normal (applies (MEDGEN) to non-numeric [facility] results) [place] [facility] [facility] EGFR NON AFR 18 Below low normal (MEDGEN) [place] mL/min/1 [place] .73m2 [place] [facility] EGFR 21 Below low normal (MEDGEN) [place] mL/min/1 [place] .73m2 [place] [facility] ID Date Data Source [id number] 02/13/2019 12:00:00 AM EDT (MEDGEN) Norbert lynn [place] [facility] Name Value Range Interpretation Description Data Source(s ) Supporting Code Document(s ) WBC 7.0 Normal (applies (MEDGEN) Thousand to non-numeric [place] /uL results) [facility] RBC 3.44 Below low normal (MEDGEN) Million/ [place] uL [facility] Hemoglobin 10.3 Below low normal (MEDGEN) [Mass/volume] g/dL [place] in Mixed venous [place] blood by Nephrology Oximetry [facility] MCV 89.0 fL Normal (applies (MEDGEN) to non-numeric [place] results) [place] Hematocrit 30.6 % Below low normal (MEDGEN) [Pure volume [place] fraction] of [place] Blood by Nephrology Automated count [facility] MCH 29.9 pg Normal (applies (MEDGEN) to non-numeric [place] results) [place] MCHC 33.7 Normal (applies (MEDGEN) g/dL to non-numeric [place] results) [place] RDW 13.6 % Normal (applies (MEDGEN) to non-numeric [place] results) [place] PLATELET COUNT 198 Normal (applies (MEDGEN) Thousand to non-numeric [place] /uL results) [place] MPV 12.3 fL Normal (applies (MEDGEN) to non-numeric [place] results) [place] TOTAL 59.0 % Normal (applies (MEDGEN) NEUTROPHILS,% to non-numeric [place] results) [place] TOTAL 26.6 % Normal (applies (MEDGEN) LYMPHOCYTES,% to non-numeric [place] results) [place] MONOCYTES,% 10.8 % Normal (applies (MEDGEN) to non-numeric [place] results) [place] EOSINOPHILS,% 3.3 % Normal (applies (MEDGEN) to non-numeric [place] results) [place] NEUTROPHILS,ABS 4130 Normal (applies (MEDGEN) [place] cells/uL to non-numeric [place] results) [place] BASOPHILS,% 0.3 % Normal (applies (MEDGEN) to non-numeric [place] results) [place] LYMPHOCYTES,ABS 1862 Normal (applies (MEDGEN) [place] cells/uL to non-numeric [place] results) [place] MONOCYTES,ABSOL 756 Normal (applies (MEDGEN) PILOT STATION cells/uL to non-numeric [place] results) [place] EOSINOPHILS,ABS 231 Normal (applies (MEDGEN) [place] cells/uL to non-numeric [place] results) [place] DIFFERENTIAL Normal (applies (MEDGEN) to non-numeric [place] results) [facility] [facility] BASOPHILS,ABSOL 21 Normal (applies (MEDGEN) PILOT STATION cells/uL to non-numeric [place] results) [place] [facility] [facility] ID Date Data Source [id number] 02/13/2019 12:00:00 AM EDT (MEDGEN) Norbert shane [facility] Name Value Range Interpretation Description Data Source(s ) Supporting Code Document(s ) PHOSPHATE ( 4.1 mg/dL Normal (applies (MEDGEN) PHOSPHORUS) to non-numeric [place] results) [place] [facility] [facility] ID Date Data Source [id number] 02/13/2019 12:00:00 AM EDT (MEDGEN) Norbert shane [facility] Name Value Range Interpretation Description Data Source(s ) Supporting Code Document(s ) Glucose 140 Above high normal (MEDGEN) [Mass/volume] mg/dL [place] in Urine [place] collected for Nephrology unspecified PLL duration Sodium 136 Normal (applies (MEDGEN) [Moles/volume] mmol/L to non-numeric [place] in Serum, results) [place] Plasma or Blood [facility]phrology [facility] Chloride 102 Normal (applies (MEDGEN) [Moles/volume] mmol/L to non-numeric [place] in Serum, results) [place] Plasma or Blood [facility]ph[facility] Potassium 5.3 Normal (applies (MEDGEN) [Mass/volume] mmol/L to non-numeric [place] in Blood results) [facility] [facility] Carbon dioxide 24 Normal (applies (MEDGEN) [VFr/PPres] in mmol/L to non-numeric [place] Gas delivery results) [facility]rology [facility] Urea nitrogen 63 mg/dL Above high normal (MEDGEN) [Moles/volume] [place] in Blood [facility] Creatinine 3.32 Above high normal (MEDGEN) [Interpretation mg/dL [place] ] in Urine [facility] Calcium 8.5 Below low normal (MEDGEN) [Moles/volume] mg/dL [place] in Urine [place] collected for Nephrology unspecified PLL duration BUN/CREATININE 19 Normal (applies (MEDGEN) RATIO (calc) to non-numeric [place] results) [place] [facility] [facility] PROTEIN, TOTAL 6.8 g/dL Normal (applies (MEDGEN) to non-numeric [place] results) [place] [facility] Microalbumin 3.6 g/dL Normal (applies (MEDGEN) [Mass/time] in to non-numeric [place] Urine collected results) [place] for unspecified Nephrology duration [facility] Globulin 3.2 g/dL Normal (applies (MEDGEN) [Mass/time] in (calc) to non-numeric [place] 24 hour Urine results) [place] [facility] ALBUMIN/GLOBULI 1.1 Normal (applies (MEDGEN) N RATIO (calc) to non-numeric [place] results) [place] [facility] Alkaline 48 U/L Normal (applies (MEDGEN) phosphatase to non-numeric [place] [Enzymatic results) [place] activity/volume Nephrology ] in Serum, [facility] Plasma or Blood BILIRUBIN,TOTAL 0.4 Normal (applies (MEDGEN) mg/dL to non-numeric [place] results) [place] [facility] AST 15 U/L Normal (applies (MEDGEN) to non-numeric [place] results) [place] [facility] ALT 10 U/L Normal (applies (MEDGEN) to non-numeric [place] results) [place] [facility] EGFR NON AFR 18 Below low normal (MEDGEN) [place] mL/min/1 [place] .73m2 [place] [facility] EGFR 21 Below low normal (MEDGEN) [place] mL/min/1 [place] .73m2 [place] [facility] ID Date Data Source [id number] 02/13/2019 12:00:00 AM EDT (MEDGEN) Norbert lynn [place] [facility] Name Value Range Interpretation Description Data Source(s ) Supporting Code Document(s ) WBC 7.0 Normal (applies (MEDGEN) Thousand to non-numeric [place] /uL results) [place] [facility] RBC 3.44 Below low normal (MEDGEN) Million/ [place] uL [place] [facility] Hemoglobin 10.3 Below low normal (MEDGEN) [Mass/volume] g/dL [place] in Mixed venous [place] blood by Nephrology Oximetry [facility] Hematocrit 30.6 % Below low normal (MEDGEN) [Pure volume [place] fraction] of [place] Blood by Nephrology Automated count PLL MCV 89.0 fL Normal (applies (MEDGEN) to non-numeric [place] results) [place] [facility] MCH 29.9 pg Normal (applies (MEDGEN) to non-numeric [place] results) [place] MCHC 33.7 Normal (applies (MEDGEN) g/dL to non-numeric [place] results) [place] RDW 13.6 % Normal (applies (MEDGEN) to non-numeric [place] results) [place] MPV 12.3 fL Normal (applies (MEDGEN) to non-numeric [place] results) [place] PLATELET COUNT 198 Normal (applies (MEDGEN) Thousand to non-numeric [place] /uL results) [place] TOTAL 59.0 % Normal (applies (MEDGEN) NEUTROPHILS,% to non-numeric [place] results) [place] TOTAL 26.6 % Normal (applies (MEDGEN) LYMPHOCYTES,% to non-numeric [place] results) [place] MONOCYTES,% 10.8 % Normal (applies (MEDGEN) to non-numeric [place] results) [place] EOSINOPHILS,% 3.3 % Normal (applies (MEDGEN) to non-numeric [place] results) [place] BASOPHILS,% 0.3 % Normal (applies (MEDGEN) to non-numeric [place] results) [place] LYMPHOCYTES,ABS 1862 Normal (applies (MEDGEN) [place] cells/uL to non-numeric [place] results) [place] NEUTROPHILS,ABS 4130 Normal (applies (MEDGEN) [place] cells/uL to non-numeric [place] results) [place] MONOCYTES,ABSOL 756 Normal (applies (MEDGEN) PILOT STATION cells/uL to non-numeric [place] results) [place] EOSINOPHILS,ABS 231 Normal (applies (MEDGEN) [place] cells/uL to non-numeric [place] results) [place] DIFFERENTIAL Normal (applies (MEDGEN) to non-numeric [place] results) [place] BASOPHILS,ABSOL 21 Normal (applies (MEDGEN) PILOT STATION cells/uL to non-numeric [place] results) [place] ID Date Data Source [id number] 02/13/2019 12:00:00 AM EDT (MEDGEN) Norbert lynn [place] [facility] Name Value Range Interpretation Description Data Source(s ) Supporting Code Document(s ) PHOSPHATE ( 4.1 mg/dL Normal (applies (MEDGEN) PHOSPHORUS) to non-numeric [place] results) [place] [facility] ID Date Data Source [id number] 02/13/2019 12:00:00 AM EDT (MEDGEN) Norbert lynn [place] [facility] Name Value Range Interpretation Description Data Source(s ) Supporting Code Document(s ) Glucose 140 Above high normal (MEDGEN) [Mass/volume] mg/dL [place] in Urine [place] collected for Nephrology unspecified PLL duration Sodium 136 Normal (applies (MEDGEN) [Moles/volume] mmol/L to non-numeric [place] in Serum, results) [place] Plasma or Blood [facility] Potassium 5.3 Normal (applies (MEDGEN) [Mass/volume] mmol/L to non-numeric [place] in Blood results) [place] [facility] Chloride 102 Normal (applies (MEDGEN) [Moles/volume] mmol/L to non-numeric [place] in Serum, results) [place] Plasma or Blood Nephrology [facility] Carbon dioxide 24 Normal (applies (MEDGEN) [VFr/PPres] in mmol/L to non-numeric [place] Gas delivery results) [place] [facility] Urea nitrogen 63 mg/dL Above high normal (MEDGEN) [Moles/volume] [place] in Blood [facility] [facility] Creatinine 3.32 Above high normal (MEDGEN) [Interpretation mg/dL [place] ] in Urine [facility] [facility] BUN/CREATININE 19 Normal (applies (MEDGEN) RATIO (calc) to non-numeric [place] results) [place] [facility] Calcium 8.5 Below low normal (MEDGEN) [Moles/volume] mg/dL [place] in Urine [place] collected for Nephrology unspecified PLLC duration PROTEIN, TOTAL 6.8 g/dL Normal (applies (MEDGEN) to non-numeric [place] results) [place] [facility] Microalbumin 3.6 g/dL Normal (applies (MEDGEN) [Mass/time] in to non-numeric [place] Urine collected results) [place] for unspecified Nephrology duration PLL Globulin 3.2 g/dL Normal (applies (MEDGEN) [Mass/time] in (calc) to non-numeric [place] 24 hour Urine results) [place] [facility] BILIRUBIN,TOTAL 0.4 Normal (applies (MEDGEN) mg/dL to non-numeric [place] results) [place] [facility] ALBUMIN/GLOBULI 1.1 Normal (applies (MEDGEN) N RATIO (calc) to non-numeric [place] results) [place] [facility] Alkaline 48 U/L Normal (applies (MEDGEN) phosphatase to non-numeric [place] [Enzymatic results) [place] activity/volume Nephrology ] in Serum, [facility] Plasma or Blood AST 15 U/L Normal (applies (MEDGEN) to non-numeric [place] results) [place] [facility] ALT 10 U/L Normal (applies (MEDGEN) to non-numeric [place] results) [place] [facility] EGFR NON AFR 18 Below low normal (MEDGEN) [place] mL/min/1 [place] .73m2 [place] [facility] EGFR 21 Below low normal (MEDGEN) [place] mL/min/1 [place] .73m2 [place] [facility] ID Date Data Source [id number] 12/21/2018 12:00:00 AM EDT (MEDGEN) Norbert [facility] Name Value Range Interpretation Description Data Source(s ) Supporting Code Document(s ) Hemoglobin A1c 7.9 % of Above high normal (MEDGEN ) in Blood total [place] Hgb [place] [facility] ID Date Data Source [id number] 12/21/2018 12:00:00 AM EDT (MEDGEN) [facility] Name Value Range Interpretation Description Data Source(s ) Supporting Code Document(s ) WBC 5.6 Normal (applies (MEDGEN) Thousand to non-numeric [place] /uL results) [place] [facility] RBC 3.56 Below low normal (MEDGEN) Million/ [place] uL [place] [facility] [facility] Hemoglobin 10.9 Below low normal (MEDGEN) [Mass/volume] g/dL [place] in Mixed venous [place] blood by Nephrology Oxim[facility] PLL Hematocrit 31.5 % Below low normal (MEDGEN) [Pure volume [place] fraction] of [place] Blood by Nephrology Automated count [facility] MCV 88.5 fL Normal (applies (MEDGEN) to non-numeric [place] results) [place] [facility] MCHC 34.6 Normal (applies (MEDGEN) g/dL to non-numeric [place] results) [facility] 30.6 pg Normal (applies (MEDGEN) to non-numeric [place] results) [place] RDW 13.1 % Normal (applies (MEDGEN) to non-numeric [place] results) [place] PLATELET COUNT 185 Normal (applies (MEDGEN) Thousand to non-numeric [place] /uL results) [place] MPV 12.3 fL Normal (applies (MEDGEN) to non-numeric [place] results) [place] TOTAL 26.6 % Normal (applies (MEDGEN) LYMPHOCYTES,% to non-numeric [place] results) [place] TOTAL 58.1 % Normal (applies (MEDGEN) NEUTROPHILS,% to non-numeric [place] results) [place] MONOCYTES,% 11.7 % Normal (applies (MEDGEN) to non-numeric [place] results) [place] EOSINOPHILS,% 3.4 % Normal (applies (MEDGEN) to non-numeric [place] results) [place] BASOPHILS,% 0.2 % Normal (applies (MEDGEN) to non-numeric [place] results) [place] NEUTROPHILS,ABS 3254 Normal (applies (MEDGEN) [place] cells/uL to non-numeric [place] results) [place] LYMPHOCYTES,ABS 1490 Normal (applies (MEDGEN) [place] cells/uL to non-numeric [place] results) [place] MONOCYTES,ABSOL 655 Normal (applies (MEDGEN) PILOT STATION cells/uL to non-numeric [place] results) [place] EOSINOPHILS,ABS 190 Normal (applies (MEDGEN) [place] cells/uL to non-numeric [place] results) [place] BASOPHILS,ABSOL 11 Normal (applies (MEDGEN) PILOT STATION cells/uL to non-numeric [place] results) [place] DIFFERENTIAL Normal (applies (MEDGEN) to non-numeric [place] results) [place] ID Date Data Source [id number] 12/21/2018 12:00:00 AM EDT (MEDGEN) Norbert lynn [place] [facility] Name Value Range Interpretation Description Data Source(s ) Supporting Code Document(s ) PHOSPHATE ( 4.5 mg/dL Above high normal (MEDGEN) PHOSPHORUS) [facility] ID Date Data Source [id number] 12/21/2018 12:00:00 AM EDT (MEDGEN) Norbert lynn [place] [facility] Name Value Range Interpretation Description Data Source(s ) Supporting Code Document(s ) Glucose 240 Above high normal (MEDGEN) [Mass/volume] mg/dL [place] in Urine [place] collected for Nephrology unspecified [facility] duration Sodium 134 Below low normal (MEDGEN) [Moles/volume] mmol/L [place] in Serum, [place] Plasma or Blood [facility] Potassium 4.9 Normal (applies (MEDGEN) [Mass/volume] mmol/L to non-numeric [place] in Blood results) [place] [facility] Chloride 99 Normal (applies (MEDGEN) [Moles/volume] mmol/L to non-numeric [place] in Serum, results) [place] Plasma or Blood Nephrology [facility] Carbon dioxide 23 Normal (applies (MEDGEN) [VFr/PPres] in mmol/L to non-numeric [facility] [employer] delivery results) [facility] Urea nitrogen 67 mg/dL Above high normal (MEDGEN) [Moles/volume] [facility] in Blood [place] [facility] Creatinine 3.39 Above high normal (MEDGEN) [Interpretation mg/dL [facility] ] in Urine [place] [facility] BUN/CREATININE 20 Normal (applies (MEDGEN) RATIO (calc) to non-numeric [facility] results) [place] [facility] Calcium 8.7 Normal (applies (MEDGEN) [Moles/volume] mg/dL to non-numeric [place] in Urine results) [place] [facility] duration PROTEIN, TOTAL 7.1 g/dL Normal (applies (MEDGEN) to non-numeric [facility] results) [place] [facility] Globulin 3.4 g/dL Normal (applies (MEDGEN) [Mass/time] in (calc) to non-numeric [facility] 24 hour Urine results) [place] [facility] Microalbumin 3.7 g/dL Normal (applies (MEDGEN) [Mass/time] in to non-numeric [facility] Urine collected results) [place] for unspecified Nephrology duration PLLC ALBUMIN/GLOBULI 1.1 Normal (applies (MEDGEN) N RATIO (calc) to non-numeric [facility] results) [place] [facility] BILIRUBIN,TOTAL 0.4 Normal (applies (MEDGEN) mg/dL to non-numeric [facility] results) [place] [facility] Alkaline 53 U/L Normal (applies (MEDGEN) phosphatase to non-numeric [facility] [Enzymatic results) [place] activity/volume Nephrology ] in Serum, [facility] Plasma or Blood AST 13 U/L Normal (applies (MEDGEN) to non-numeric [facility] results) [place] [facility] ALT 10 U/L Normal (applies (MEDGEN) to non-numeric [facility] results) [facility] EGFR NON AFR 17 Below low normal (MEDGEN) [place] mL/min/1 [facility] .73m2 [place] [facility] EGFR 20 Below low normal (MEDGEN) [place] mL/min/1 [facility] .73m2 [place] [facility] ID Date Data Source [id number] 12/21/2018 12:00:00 AM EDT (MEDGEN) [facility] Name Value Range Interpretation Description Data Source(s ) Supporting Code Document(s ) Calcium 8.7 Normal (applies (MEDGEN) [Moles/volume] mg/dL to non-numeric [place] in Urine results) [place] collected for [facility] duration PTH,INTACT 124 Above high normal (MEDGEN) pg/mL [facility] ID Date Data Source [id number] 12/21/2018 12:00:00 AM EDT (MEDGEN) [facility] Name Value Range Interpretation Description Data Source(s ) Supporting Code Document(s ) Hemoglobin A1c 7.9 % of Above high normal (MEDGEN ) in Blood total [facility] Hgb [place] [facility] ID Date Data Source [id number] 12/21/2018 12:00:00 AM EDT (MEDGEN) [facility] Name Value Range Interpretation Description Data Source(s ) Supporting Code Document(s ) RBC 3.56 Below low normal (MEDGEN) Million/ [place] uL [place] [facility] WBC 5.6 Normal (applies (MEDGEN) Thousand to non-numeric [facility] /uL results) [place] [facility] Hemoglobin 10.9 Below low normal (MEDGEN) [Mass/volume] g/dL [place] in Mixed venous [place] blood by [facility]ph[facility] Hematocrit 31.5 % Below low normal (MEDGEN) [Pure volume [place] fraction] of [place] Blood by Nephrology Automated count [facility] MCV 88.5 fL Normal (applies (MEDGEN) to non-numeric [place] results) [place] [facility] MCH 30.6 pg Normal (applies (MEDGEN) to non-numeric [facility] results) [place] [facility] MCHC 34.6 Normal (applies (MEDGEN) g/dL to non-numeric [facility] results) [place] [facility] RDW 13.1 % Normal (applies (MEDGEN) to non-numeric [place] results) [place] PLATELET COUNT 185 Normal (applies (MEDGEN) Thousand to non-numeric [facility] /uL results) [place] MPV 12.3 fL Normal (applies (MEDGEN) to non-numeric [place] results) [place] TOTAL 58.1 % Normal (applies (MEDGEN) NEUTROPHILS,% to non-numeric [facility] results) [place] TOTAL 26.6 % Normal (applies (MEDGEN) LYMPHOCYTES,% to non-numeric [facility] results) [place] MONOCYTES,% 11.7 % Normal (applies (MEDGEN) to non-numeric [place] results) [place] EOSINOPHILS,% 3.4 % Normal (applies (MEDGEN) to non-numeric [place] results) [place] BASOPHILS,% 0.2 % Normal (applies (MEDGEN) to non-numeric [place] results) [place] NEUTROPHILS,ABS 3254 Normal (applies (MEDGEN) OLUTE cells/uL to non-numeric [facility] results) [facility] LYMPHOCYTES,ABS 1490 Normal (applies (MEDGEN) OLUTE cells/uL to non-numeric [facility] results) [place] MONOCYTES,ABSOL 655 Normal (applies (MEDGEN) PILOT STATION cells/uL to non-numeric [facility] results) [place] EOSINOPHILS,ABS 190 Normal (applies (MEDGEN) OLUTE cells/uL to non-numeric [facility] results) [place] BASOPHILS,ABSOL 11 Normal (applies (MEDGEN) PILOT STATION cells/uL to non-numeric [facility] results) [place] DIFFERENTIAL Normal (applies (MEDGEN) to non-numeric [facility] results) [place] [facility] ID Date Data Source [id number] 12/21/2018 12:00:00 AM EDT (MEDGEN) [facility]bert shane [place] [facility] Name Value Range Interpretation Description Data Source(s ) Supporting Code Document(s ) PHOSPHATE ( 4.5 mg/dL Above high normal (MEDGEN) PHOSPHORUS) [facility] ID Date Data Source [id number] 12/21/2018 12:00:00 AM EDT (MEDGEN) [facility] Name Value Range Interpretation Description Data Source(s ) Supporting Code Document(s ) Glucose 240 Above high normal (MEDGEN) [Mass/volume] mg/dL [place] in Urine [place] collected for Nephrology unspecified PLL duration Sodium 134 Below low normal (MEDGEN) [Moles/volume] mmol/L [place] in Serum, [place] Plasma or Blood Nephrology [facility] Potassium 4.9 Normal (applies (MEDGEN) [Mass/volume] mmol/L to non-numeric [facility] in Blood results) [place] [facility] Chloride 99 Normal (applies (MEDGEN) [Moles/volume] mmol/L to non-numeric [facility] in Serum, results) [place] Plasma or Blood Nephrology [facility] Carbon dioxide 23 Normal (applies (MEDGEN) [VFr/PPres] in mmol/L to non-numeric [facility] Gas delivery results) [place] [facility] Urea nitrogen 67 mg/dL Above high normal (MEDGEN) [Moles/volume] [place] in Blood [place] [facility] Creatinine 3.39 Above high normal (MEDGEN) [Interpretation mg/dL [place] ] in Urine [place] [facility] BUN/CREATININE 20 Normal (applies (MEDGEN) RATIO (calc) to non-numeric [facility] results) [place] [facility] Calcium 8.7 Normal (applies (MEDGEN) [Moles/volume] mg/dL to non-numeric [facility] in Urine results) [place] collected for Nephrology unspecified PLL duration PROTEIN, TOTAL 7.1 g/dL Normal (applies (MEDGEN) to non-numeric [facility] results) [place] [facility] Microalbumin 3.7 g/dL Normal (applies (MEDGEN) [Mass/time] in to non-numeric [facility] Urine collected results) [place] for unspecified Nephrology duration PLLC ALBUMIN/GLOBULI 1.1 Normal (applies (MEDGEN) N RATIO (calc) to non-numeric [facility] results) [place] [facility] Globulin 3.4 g/dL Normal (applies (MEDGEN) [Mass/time] in (calc) to non-numeric [facility] 24 hour Urine results) [place] [facility] BILIRUBIN,TOTAL 0.4 Normal (applies (MEDGEN) mg/dL to non-numeric [facility] results) [place] [facility] Alkaline 53 U/L Normal (applies (MEDGEN) phosphatase to non-numeric [facility] [Enzymatic results) [place] activity/volume Nephrology ] in Serum, [facility] Plasma or Blood AST 13 U/L Normal (applies (MEDGEN) to non-numeric [facility] results) [place] [facility] ALT 10 U/L Normal (applies (MEDGEN) to non-numeric [facility] results) [place] [facility] EGFR 20 Below low normal (MEDGEN) [place] mL/min/1 [facility] .73m2 [place] [facility] EGFR NON AFR 17 Below low normal (MEDGEN) [place] mL/min/1 [place] .73m2 [place] [facility] ID Date Data Source [id number] 12/21/2018 12:00:00 AM EDT (MEDGEN) [facility] Value Range Interpretation Description Data Source(s ) Supporting Code Document(s ) Calcium 8.7 Normal (applies (MEDGEN) [Moles/volume] mg/dL to non-numeric [facility] in Urine results) [place] collected for Nephrology unspecified [facility] duration PTH,INTACT 124 Above high normal (MEDGEN) pg/mL [facility] ID Date Data Source [id number] 12/21/2018 12:00:00 AM EDT (MEDGEN) Norbert [facility] Name Value Range Interpretation Description Data Source(s ) Supporting Code Document(s ) Hemoglobin A1c 7.9 % of Above high normal (MEDGEN ) in Blood total [facility] Hgb [place] [facility] ID Date Data Source [id number] 12/21/2018 12:00:00 AM EDT (MEDGEN) [facility] Name Value Range Interpretation Description Data Source(s ) Supporting Code Document(s ) WBC 5.6 Normal (applies (MEDGEN) Thousand to non-numeric [place] /uL results) [place] RBC 3.56 Below low normal (MEDGEN) Million/ [place] uL [place] [facility] Hemoglobin 10.9 Below low normal (MEDGEN) [Mass/volume] g/dL [place] in Mixed venous [place] blood by Nephrology Oximetry [facility] Hematocrit 31.5 % Below low normal (MEDGEN) [Pure volume [place] fraction] of [place] Blood by Nephrology Automated count [facility] MCV 88.5 fL Normal (applies (MEDGEN) to non-numeric [place] results) [place] MCH 30.6 pg Normal (applies (MEDGEN) to non-numeric [place] results) [place] MCHC 34.6 Normal (applies (MEDGEN) g/dL to non-numeric [place] results) [place] PLATELET COUNT 185 Normal (applies (MEDGEN) Thousand to non-numeric [place] /uL results) [place] RDW 13.1 % Normal (applies (MEDGEN) to non-numeric [place] results) [place] MPV 12.3 fL Normal (applies (MEDGEN) to non-numeric [place] results) [place] TOTAL 58.1 % Normal (applies (MEDGEN) NEUTROPHILS,% to non-numeric [facility] results) [place] TOTAL 26.6 % Normal (applies (MEDGEN) LYMPHOCYTES,% to non-numeric [facility] results) [place] MONOCYTES,% 11.7 % Normal (applies (MEDGEN) to non-numeric [place] results) [place] BASOPHILS,% 0.2 % Normal (applies (MEDGEN) to non-numeric [facility] results) [place] EOSINOPHILS,% 3.4 % Normal (applies (MEDGEN) to non-numeric [place] results) [place] NEUTROPHILS,ABS 3254 Normal (applies (MEDGEN) OLUTE cells/uL to non-numeric [facility] results) [place] LYMPHOCYTES,ABS 1490 Normal (applies (MEDGEN) [place] cells/uL to non-numeric [facility] results) [place] MONOCYTES,ABSOL 655 Normal (applies (MEDGEN) PILOT STATION cells/uL to non-numeric [facility] results) [place] [facility] EOSINOPHILS,ABS 190 Normal (applies (MEDGEN) OLUTE cells/uL to non-numeric [facility] results) [place] [facility] BASOPHILS,ABSOL 11 Normal (applies (MEDGEN) PILOT STATION cells/uL to non-numeric [facility] results) [place] [facility] DIFFERENTIAL Normal (applies (MEDGEN) to non-numeric [place] results) [place] [facility] ID Date Data Source [id number] 12/21/2018 12:00:00 AM EDT (MEDGEN) [facility] Name Value Range Interpretation Description Data Source(s ) Supporting Code Document(s ) PHOSPHATE ( 4.5 mg/dL Above high normal (MEDGEN) PHOSPHORUS) [facility] ID Date Data Source [id number] 12/21/2018 12:00:00 AM EDT (MEDGEN) [facility] Name Value Range Interpretation Description Data Source(s ) Supporting Code Document(s ) Sodium 134 Below low normal (MEDGEN) [Moles/volume] mmol/L [place] in Serum, [place] Plasma or Blood Nephrology [facility] Glucose 240 Above high normal (MEDGEN) [Mass/volume] mg/dL [place] in Urine [place] collected for Nephrology unspecified [facility] duration Potassium 4.9 Normal (applies (MEDGEN) [Mass/volume] mmol/L to non-numeric [place] in Blood results) [place] [facility] Chloride 99 Normal (applies (MEDGEN) [Moles/volume] mmol/L to non-numeric [place] in Serum, results) [place] Plasma or Blood Nephrology [facility] Carbon dioxide 23 Normal (applies (MEDGEN) [VFr/PPres] in mmol/L to non-numeric [place] [employer] delivery results) [place] [facility] Urea nitrogen 67 mg/dL Above high normal (MEDGEN) [Moles/volume] [place] in Blood [place] [facility] Creatinine 3.39 Above high normal (MEDGEN) [Interpretation mg/dL [place] ] in Urine [place] [facility] BUN/CREATININE 20 Normal (applies (MEDGEN) RATIO (calc) to non-numeric [facility] results) [place] [facility] Calcium 8.7 Normal (applies (MEDGEN) [Moles/volume] mg/dL to non-numeric [facility] in Urine results) [place] collected for Nephrology unspecified PLL[facility] duration PROTEIN, TOTAL 7.1 g/dL Normal (applies (MEDGEN) to non-numeric [facility] results) [place] [facility] Microalbumin 3.7 g/dL Normal (applies (MEDGEN) [Mass/time] in to non-numeric [facility] Urine collected results) [place] for unspecified Nephrology duration PLLC Globulin 3.4 g/dL Normal (applies (MEDGEN) [Mass/time] in (calc) to non-numeric [facility] 24 hour Urine results) [place] [facility] ALBUMIN/GLOBULI 1.1 Normal (applies (MEDGEN) N RATIO (calc) to non-numeric [facility] results) [place] [facility] BILIRUBIN,TOTAL 0.4 Normal (applies (MEDGEN) mg/dL to non-numeric [facility] results) [place] [facility] Alkaline 53 U/L Normal (applies (MEDGEN) phosphatase to non-numeric [facility] [Enzymatic results) [place] activity/volume Nephrology ] in Serum, [facility] Plasma or Blood AST 13 U/L Normal (applies (MEDGEN) to non-numeric [facility] results) [place] [facility] ALT 10 U/L Normal (applies (MEDGEN) to non-numeric [facility] results) [place] [facility] EGFR NON AFR 17 Below low normal (MEDGEN) [place] mL/min/1 [place] .73m2 [place] [facility] EGFR 20 Below low normal (MEDGEN) [place] mL/min/1 [place] .73m2 [place] [facility] ID Date Data Source [id number] 12/21/2018 12:00:00 AM EDT (MEDGEN) Norbert lynn [place] [facility] Name Value Range Interpretation Description Data Source(s ) Supporting Code Document(s ) Calcium 8.7 Normal (applies (MEDGEN) [Moles/volume] mg/dL to non-numeric [facility] in Urine results) [place] collected for Nephrology unspecified [facility] duration PTH,INTACT 124 Above high normal (MEDGEN) pg/mL [facility] Procedure Social History Code Duration Value Status Description Data Source(s ) Smoking 01/17/2020 Never Smoked completed Never Smoked Rare (MEDG EN) [facility] 12:00:00 AM EDT Rare ETOH ETOH 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 Lives home with and at home with 3 dts and 3 dts Smoking 01/17/2020 Never smoked completed Never smoked (MEDGEN) [facility] 12:00:00 AM EDT [facility] Smoking 11/28/2019 Never Smoked completed Never Smoked Rare (MEDG EN) [facility] 12:00:00 AM EDT Rare ETOH 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 Lives home with and at home with 3 dts and 3 dts Smoking 11/28/2019 Never smoked completed Never smoked (MEDGEN) [facility] 12:00:00 AM EDT [facility] Smoking 11/28/2019 Never Smoked completed Never Smoked Rare (MEDG EN) [facility] 12:00:00 AM EDT Rare ETOH ETOH 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 home with and at home with 3 dts and 3 dts Smoking 11/28/2019 Never smoked completed Never smoked (MEDGEN) [facility] 12:00:00 AM EDT [facility] Vital Signs ID Date Data Source UNK Name Value Range Interpretation Code Description Data Source(s) Heart rate 65 /min 65 /min (MEDGEN) [facility] Body mass index 39.1 kg/m2 39.1 kg/m2 (MEDGEN) [facility] (BMI) [Ratio] [place] [facility] Diastolic blood 52 mm[Hg] 52 mm[Hg] (MEDGEN) [facility] pressure [place] [facility] Systolic blood 133 mm[Hg] 133 mm[Hg] (MEDGEN) S outhern [facility] Body weight 257 lb 257 lb (MEDGEN) [facility] Body height 68 in 68 in (MEDGEN) [facility] Heart rate 65 /min 65 /min (MEDGEN) [facility] Body mass index 39.8 kg/m2 39.8 kg/m2 (MEDGEN) [facility] (BMI) [Ratio] [place] [facility] Diastolic blood 48 mm[Hg] 48 mm[Hg] (MEDGEN) [facility] Systolic blood 119 mm[Hg] 119 mm[Hg] (MEDGEN) [facility] pressure [place] [facility] Body weight 262 lb 262 lb (MEDGEN) [facility] Body height 68 in 68 in [facility] Heart rate 65 /min 65 /min (MEDGEN) [facility] Body mass index 39.8 kg/m2 39.8 kg/m2 (MEDGEN) [facility] (BMI) [Ratio] [place] [facility] Diastolic blood 48 mm[Hg] 48 mm[Hg] (MEDGEN) [facility] Systolic blood 119 mm[Hg] 119 mm[Hg] (MEDGEN) [facility] pressure [place] [facility] Body weight 262 lb 262 lb (MEDGEN) [facility] Body height 68 in 68 in ([facility]) [facility] Heart rate 65 /min 65 /min (MEDGEN) [facility] Body mass index 39.8 kg/m2 39.8 kg/m2 [facility] (BMI) [Ratio] [place] [facility] Diastolic blood 48 mm[Hg] 48 mm[Hg] (MEDGEN) [facility] Systolic blood 119 mm[Hg] 119 mm[Hg] (MEDGEN) [facility] pressure [place] [facility] Body weight 262 lb 262 lb (MEDGEN) [facility] Body height 68 in 68 in (MEDGEN) [facility] Heart rate 61 /min 61 /min (MEDGEN) [facility] Body mass index 39.5 kg/m2 39.5 kg/m2 (MEDGEN) [facility] (BMI) [Ratio] [place] [facility] Diastolic blood 60 mm[Hg] 60 mm[Hg] (MEDGEN) [facility] Systolic blood 130 mm[Hg] 130 mm[Hg] (MEDGEN) [facility] pressure [place] [facility] Body weight 260 lb 260 lb (MEDGEN) [facility] Body height 68 in 68 in ([facility]) [facility] Heart rate 61 /min 61 /min (MEDGEN) [facility] Body mass index 39.5 kg/m2 39.5 kg/m2 (MEDGEN) [facility] (BMI) [Ratio] [place] [facility] Diastolic blood 60 mm[Hg] 60 mm[Hg] (MEDGEN) [facility] Systolic blood 130 mm[Hg] 130 mm[Hg] (MEDGEN) [facility] pressure [place] [facility] Body weight 260 lb 260 lb (MEDGEN) [facility] Body height 68 in 68 in [facility] Heart rate 61 /min 61 /min (MEDGEN) [facility] Body mass index 39.5 kg/m2 39.5 kg/m2 (MEDGEN) [facility] (BMI) [Ratio] [place] [facility] Diastolic blood 60 mm[Hg] 60 mm[Hg] (MEDGEN) [facility] Systolic blood 130 mm[Hg] 130 mm[Hg] (MEDGEN) [facility] pressure [place] [facility] Body weight 260 lb 260 lb (MEDGEN) [facility] Body height 68 in 68 in [facility] Heart rate 63 /min 63 /min (MEDGEN) [facility] Body mass index 38.2 kg/m2 38.2 kg/m2 (MEDGEN) [facility] (BMI) [Ratio] [place] [facility] Diastolic blood 58 mm[Hg] 58 mm[Hg] (MEDGEN) [facility] Systolic blood 149 mm[Hg] 149 mm[Hg] (MEDGEN) [facility] pressure [place] [facility] Body weight 251 lb 251 lb (MEDGEN) [facility] Body height 68 in 68 in ([facility]) [facility] Heart rate 63 /min 63 /min (MEDGEN) [facility] Body mass index 38.2 kg/m2 38.2 kg/m2 (MEDGEN) [facility] (BMI) [Ratio] [place] [facility] Diastolic blood 58 mm[Hg] 58 mm[Hg] (MEDGEN) [facility] Systolic blood 149 mm[Hg] 149 mm[Hg] (MEDGEN) [facility] pressure [place] [facility] Body weight 251 lb 251 lb (MEDGEN) [facility] Body height 68 in 68 in [facility] Heart rate 63 /min 63 /min (MEDGEN) [facility] Body mass index 38.2 kg/m2 38.2 kg/m2 (MEDGEN) [facility] (BMI) [Ratio] [place] [facility] Diastolic blood 58 mm[Hg] 58 mm[Hg] (MEDGEN) [facility] Systolic blood 149 mm[Hg] 149 mm[Hg] (MEDGEN) [facility] pressure [place] [facility] Body weight 251 lb 251 lb (MEDGEN) [facility] Body height 68 in 68 in ([facility]) [facility] Heart rate 60 /min 60 /min (MEDGEN) [facility] Body mass index 38.5 kg/m2 38.5 kg/m2 (MEDGEN) [facility] (BMI) [Ratio] [place] [facility] Diastolic blood 56 mm[Hg] 56 mm[Hg] (MEDGEN) [facility] Systolic blood 157 mm[Hg] 157 mm[Hg] (MEDGEN) [facility] pressure [place] [facility] Body weight 253 lb 253 lb (MEDGEN) [facility] Body height 68 in 68 in ([facility]) [facility] Heart rate 60 /min 60 /min (MEDGEN) [facility] Body mass index 38.5 kg/m2 38.5 kg/m2 (MEDGEN) [facility] (BMI) [Ratio] [place] [facility] Diastolic blood 56 mm[Hg] 56 mm[Hg] (MEDGEN) [facility] Systolic blood 157 mm[Hg] 157 mm[Hg] (MEDGEN) [facility] pressure [place] [facility] Body weight 253 lb 253 lb (MEDGEN) [facility] Body height 68 in 68 in [facility] Heart rate 60 /min 60 /min (MEDGEN) [facility] Body mass index 38.5 kg/m2 38.5 kg/m2 (MEDGEN) [facility] (BMI) [Ratio] [place] [facility] Diastolic blood 56 mm[Hg] 56 mm[Hg] (MEDGEN) [facility] Systolic blood 157 mm[Hg] 157 mm[Hg] (MEDGEN) [facility] pressure [place] [facility] Body weight 253 lb 253 lb (MEDGEN) [facility] Body height 68 in 68 in ([facility]) [facility] Body weight 246 lb 246 lb (MEDGEN) [facility] Body height 68 in 68 in (MEDGEN) [facility] Heart rate 68 /min 68 /min (MEDGEN) [facility] Body mass index 37.4 kg/m2 37.4 kg/m2 (MEDGEN) [facility] (BMI) [Ratio] [place] [facility] Diastolic blood 54 mm[Hg] 54 mm[Hg] (MEDGEN) [facility] Systolic blood 137 mm[Hg] 137 mm[Hg] (MEDGEN) [facility] pressure [place] [facility] Heart rate 68 /min 68 /min (MEDGEN) [facility] [facility] Body mass index 37.4 kg/m2 37.4 kg/m2 (MEDGEN) [facility] (BMI) [Ratio] [facility] Diastolic blood 54 mm[Hg] 54 mm[Hg] (MEDGEN) [facility] Systolic blood 137 mm[Hg] 137 mm[Hg] (MEDGEN) S outhern pressure [facility] Body weight 246 lb 246 lb (MEDGEN) [facility] Body height 68 in in (MEDGEN) [facility] Heart rate 68 /min 68 /min (MEDGEN) [facility] Body mass index 37.4 kg/m2 37.4 kg/m2 [facility] (BMI) [Ratio] [facility] Diastolic blood 54 mm[Hg] 54 mm[Hg] (MEDGEN) [facility] Systolic blood 137 mm[Hg] 137 mm[Hg] (MEDGEN) S outhern pressure [facility] Body weight 246 lb 246 lb (MEDGEN) [facility] Body height 68 in in [facility] Heart rate 65 /min 65 /min (MEDGEN) [facility] Body mass index 37.4 kg/m2 37.4 kg/m2 [facility] (BMI) [Ratio] [facility] Diastolic blood 44 mm[Hg] 44 mm[Hg] (MEDGEN) [facility] pressure [facility] Systolic blood 124 mm[Hg] 124 mm[Hg] (MEDGEN) S outhern pressure [facility] Body weight 246 lb 246 lb (MEDGEN) [facility] Body height 68 in in (MEDGEN) [facility] Heart rate 65 /min 65 /min (MEDGEN) [facility] Body mass index 37.4 kg/m2 37.4 kg/m2 (MEDGEN) [facility] (BMI) [Ratio] [facility] Diastolic blood 44 mm[Hg] 44 mm[Hg] (MEDGEN) [facility] Systolic blood 124 mm[Hg] 124 mm[Hg] (MEDGEN) S outhern pressure [facility] Body weight 246 lb 246 lb (MEDGEN) [facility] Body height 68 in in [facility] Heart rate 65 /min 65 /min (MEDGEN) [facility] Body mass index 37.4 kg/m2 37.4 kg/m2 (MEDGEN) [facility] (BMI) [Ratio] [facility] Diastolic blood 44 mm[Hg] 44 mm[Hg] (MEDGEN) [facility] pressure [facility] Systolic blood 124 mm[Hg] 124 mm[Hg] (MEDGEN) S outher pressure [facility] Body weight 246 lb 246 lb (MEDGEN) [facility] Body height 68 in 68 in ([facility]) [facility]
[2020-01-29] MEDS ORDERED: PAPAVERINE HCL 30 MG/1 ML 10 ML VIAL NR ONE (07:18)
[2020-01-29] MEDS ORDERED: LIDOCAINE HCL 1%, 10 MG/ML (20ML VIAL) ONE (07:19)
[2020-01-29] MEDS ORDERED: HEPARIN NA (PORCINE) 5,000 UNITS/ML 1ML VIAL ONE (07:19)
[2020-01-29] MEDS ORDERED: POVIDONE-IODINE OINTMENT 10% - 28.4 GM TUBE ONE (07:19)
[2020-01-29] MEDS ORDERED: ceFAZolin SODIUM 1 GM VIAL ONE (07:22)
[2020-01-29] MEDS ORDERED: LIDOCAINE HCL/PF 2% SDV 5ML VIAL ONE (07:22)
[2020-01-29] MEDS ORDERED: ROCURONIUM BROMIDE 50 MG/5 ML SYRINGE ONE (07:23)
[2020-01-29] MEDS ORDERED: PROPOFOL 20 ML ONE ×4 (07:23)
[2020-01-29] MEDS ORDERED: EPHEDRINE SULFATE/0.9% NACL/PF 50 MG/10 ML SYRINGE NR ONE (07:23)
[2020-01-29] MEDS ORDERED: MIDAZOLAM HCL 2 MG/2 ML SINGLE DOSE VIAL ONE ×2 (07:24)
[2020-01-29] MEDS ORDERED: ceFAZolin SODIUM 1 GM VIAL IVPB ONE (08:15)
[2020-01-29] MEDS ORDERED: LIDOCAINE HCL 1%, 10 MG/ML (20ML VIAL) INF ONE ×2 (08:29)
[2020-01-29] MEDS ORDERED: ONDANSETRON 4 MG/2 ML VIAL IVPUSH PRN (09:41)
[2020-01-29] MEDS ORDERED: oxyCODONE HCL 5 MG TABLET PO PRN (09:41)
--- NOTE | 2020-01-29 09:41 | HP ---
Satellite [facility] - Chief Complaint History of Present Illness: 69 year old man with stage 5 renal disease. He is right handed. History Source: Patient Limitations to Obtaining History: No Limitations - Past Medical History Allergies/Adverse Reactions: Allergies Allergy/AdvReac Type Severity Reaction Status Date / Time No Known Allergies Allergy Verified 01/29/20 06:54 Cardiovascular: Yes: CAD, CHF, HTN, Hyperlipdemia Endocrine: Yes: Diabetes Mellitus - Current Medications Current Medications: Home Medications Medication Instructions Recorded Hydralazine HCl 25 mg PO TID 08/25/13 Insulin Lispro [Humalog] 0 unit SQ ASDIR 08/25/13 Amlodipine Besylate [Norvasc -] 2.5 mg PO HS 05/16/19 Dexlansoprazole [Dexilant] 60 mg PO PRN PRN 05/16/19 Isosorbide Mononitrate [Imdur -] 30 mg PO BID 05/16/19 Insulin Glargine,Hum.rec.anlog 60 units SCJ ACBK 01/28/20 [Piotr Corrales] Carvedilol 25 mg PO BID 01/29/20 Furosemide 40 mg PO DAILY 01/29/20 Satellite Physical Exam - Physical Examination Vital Signs: Vital Signs Period Temp Pulse Resp BP Sys/Tena Pulse Ox Last 24 Hr 98.0 F-98.0 F 67-67 20-20 148-148/77-77 98-98 General Appearance: Obese ENT: Clear Lung: Clear to auscultation Heart: Regular rate & rhythm Abdomen: Soft Extremities: No edema Satellite Impression/Plan - Impression/Plan Impression: CKD stage 5 Operative Procedure: Creation AV fistula left arm Date to be Performed: 01/29/20
--- NOTE | 2020-01-29 09:44 | OP ---
Operative Note - Note: Operative Date: 01/29/20 Pre-Operative Diagnosis: CKD stage 5 Operation: Creation AV fistula left arm Findings: Patent cephalic vein left forearm. Post-Operative Diagnosis: Same as Pre-op Surgeon: Chevy Lowry Yarn Washer: Michael Patterson Anesthesiologist/NETSUITE CONSULTANT: Mirna Puente Anesthesia: MAC Estimated Blood Loss (mls): 10
[2020-01-29] MEDS ORDERED: SODIUM CHLORIDE 1,000 ML IV SCH (09:45)
[2020-01-29 10:51] VITALS: TEMP 97
[2020-01-29 12:29] VITALS: BP 123/53; PULSE 60
--- NOTE | 2020-01-29 12:44 | SURG ---
Surgery Lens Blocker Note Lens Blocker: Michael Patterson PA-C Date of Service: 01/29/20 Diagnosis: End stage renal failure Procedure: Creation AV fistula left arm I was present for the entirety of the operative procedure. For further detail, please refer to operative report. Visit type - Case Type Case Type: Scheduled - Emergency Emergency Visit: No - New patient This patient is new to me today: Yes Date on this admission: 01/29/20 - Critical Care Critical Care patient: No
--- NOTE | 2020-02-04 09:11 | OP ---
DATE OF OPERATION: 01/29/2020 SURGEON: Chevy Ybarra MD WARP WORKER: PAUL Harding PROCEDURE: Creation of arteriovenous fistula left arm. PREOPERATIVE DIAGNOSIS: Renal failure. POSTOPERATIVE DIAGNOSIS: Renal failure. ANESTHESIA: Fractional. ANESTHESIOLOGIST: Mirna Puente MD OPERATIVE FINDINGS: The left cephalic vein in the forearm was patent with a diameter of approximately 3 mm. OPERATIVE PROCEDURE: Following routine patient identification with side and site verification intravenous sedation was established. The left arm was prepped with ChloraPrep. Timeout was performed. Lidocaine 1% was infiltrated over the cephalic vein proximal to the wrist. Vein was exposed through a short incision. It was mobilized from subcutaneous tissues. Side branches were ligated and divided. The vein was ligated distally and incised. It was distended with heparin and papaverine solution. A No. 5 feeding tube was passed proximally without resistance. The radial artery was then exposed through a parallel incision. It was mobilized and secured with vessel loops. The vein was freed and passed through a short subcutaneous tunnel to lie next to the artery. The artery was occluded with vascular clips and opened on the exposed surface with a 6 mm arteriotomy. The end of the vein was spatulated and anastomosed to the side of the artery with running suture of 6-0 Prolene. Prior to completion of the suture line the artery was allowed to back bleed and flush and vein was flushed with heparin solution. Suture line was completed. Vessels were released. There was good flow through the anastomosis with a palpable thrill in the vein. Surgicel was applied to control bleeding. The wounds were closed with interrupted suture of 3-0 Vicryl on the subcutaneous tissues and skin urszula. Sterile dressings were applied and the patient was taken to the recovery room in stable condition. CHEVY YBARRA M.D. [id number]
== END 2020-01-29 12:10 | disposition home or self-care (01) ==
LOC: JASU-SURG 04:30
PROVIDERS: ATTEND Surgery
PROC: 031C3ZF Bypass Left Radial Artery to Lower Arm Vein, Percutaneous Approach (ICD-10-PCS; principal; 2020-01-29 08:00)
DX: I12.0 Hypertensive chronic kidney disease with stage 5 chronic kidney disease or end stage renal disease (principal); E11.22 Type 2 diabetes mellitus with diabetic chronic kidney disease; N18.6 End stage renal disease; Z79.4 Long term (current) use of insulin
CPT/HCPCS: 82962; 94760; J1644

== ENCOUNTER 2020-02-27 14:28 | Emergency (ER) | payer OTHER, MEDICARE ==
[2020-02-27 14:45] VITALS: BMI 35.4
[2020-02-27 15:39] LABS: BASO % 0.4 % (0-2.0); HEMATOCRIT 28.7 % (35.4-49); HEMOGLOBIN 9.9 GM/dL (11.7-16.9); LYMPH % 18.4 % (8-40); MCH 30.7 pg (25.7-33.7); MCHC 34.6 g/dl (32.0-35.9); MEAN CELL VOLUME 88.8 fl (80-96); MEAN PLT VOLUME 11.3 fl (7.5-11.1); MONO % 12.7 % (3.8-10.2); NEUT % 65.5 % (42.8-82.8); PLATELET COUNT 179 K/MM3 (134-434); RBC 3.23 M/mm3 (4.00-5.60)
[2020-02-27 16:04] LABS: POTASSIUM 5.5 mmol/L (3.5-5.1)
[2020-02-27 16:06] LABS: ALBUMIN 3.4 g/dl (3.4-5.0); CALCIUM 8.4 mg/dL (8.5-10.1)
[2020-02-27 16:09] LABS: CREATININE 6.1 mg/dL (0.55-1.3)
[2020-02-27 16:11] LABS: BILIRUBIN,TOTAL 0.3 mg/dL (0.2-1); TOT PROT 7.5 g/dl (6.4-8.2)
[2020-02-27 16:15] LABS: BLOOD UREA NITROGEN 121.8 mg/dL (7-18)
[2020-02-27] MEDS ORDERED: SODIUM ZIRCONIUM CYCLOSILICATE (LOKELMA) 5 GM PACKET PO ONE (16:30)
[2020-02-27] MEDS ORDERED: SODIUM ZIRCONIUM CYCLOSILICATE (LOKELMA) 10 GM PACKET PO ONE (16:30)
[2020-02-27] MEDS ORDERED: ACETAMINOPHEN 325 MG TABLET (FP) PO ONE (17:34)
[2020-02-27] MEDS ORDERED: ACETAMINOPHEN 325 MG TABLET (FP) ONE (17:46)
[2020-02-28 05:46] VITALS: BP 133/60; PULSE 68; TEMP 98.4
== END 2020-02-27 20:51 | disposition home or self-care (01) ==
LOC: JER 14:28
DX: E87.5 Hyperkalemia (principal); N28.9 Disorder of kidney and ureter, unspecified
CPT/HCPCS: 36415; 80053; 84132; 85025; 93005; 93010; 99284-25